=== PATIENT | male | born 1955 | race Caucasian/White ===

== ENCOUNTER 2023-04-10 07:38 | Outpatient (CLI) | payer BC, SELFPAY ==
--- NOTE | ~2023-04-10 | NM_ITS ---
EXAMINATION: NM bone scan whole body DATE: 04/10/2023 12:02 INDICATION: Prostate cancer TECHNIQUE: 26.8 mCi Tc-99m HDP was administered intravenously. Delayed whole-body scintigrams were o btained. COMPARISON: CT abdomen pelvis dated 04/10/2023 FINDINGS: There is prominent increased uptake at the left hip corresponding to the advanced osteoarthritis with remodeling of both the glenoid and femoral head seen on prior CT. Additional likely degenerative lionel nt centered uptake at the bilateral hands and wrists and bilateral sternoclavicular joints. Additiona l mild likely degenerative versus enthesopathic uptake at the right patella. There is mild uptake at the right ischial tuberosity with subtle corresponding sclerosis on the prior CT which raises suspici on for osseous metastatic disease. IMPRESSION: 1. Mild uptake at the right ischial tuberosity where there is subtle sclerosis which is nonspecific b ut suspicious for metastatic disease. Could consider PSMA PET for further evaluation. Reviewed, dictated and finalized at location A. IMPRESSION: 1. Mild uptake at the right ischial tuberosity where there is subtle sclerosis which is nonspecific but suspicious for metastatic disease. Could consider PSMA PET for further evaluation.
--- NOTE | ~2023-04-10 | CT_ITS ---
EXAMINATION: CT abdomen pelvis w con DATE: 04/10/2023 08:13 INDICATION: Prostate cancer TECHNIQUE: Computed tomography (CT) of the abdomen and pelvis was performed with 100 mL Omnipaque-350 intravenous contrast. Automated exposure control and iterative reconstruction technique were employe d. The dose-length product was 555.01 mGy-cm. COMPARISON: None FINDINGS: Mild discoid atelectasis in the right middle lobe. Heart size is normal. No pericardial or pleural ef fusion. A few hepatic and splenic calcifications consistent with old granulomatous disease. Gallbladd er, pancreas, bilateral adrenal glands are normal. Bilateral low-attenuation renal cysts the largest on the left measuring 1.2 cm. Prostatomegaly measuring 4.9 x 3.8 cm. Bladder is unremarkable. No arlyn l obstruction. Normal appendix. No free intraperitoneal gas or fluid. No pathologically enlarged abdo brenard or pelvic lymphadenopathy. Chronic appearing minimal to mild likely physiologic anterior wedgin g at T11-L1. Advanced osteoarthritis at the left hip with remodeling of the left femoral head and evelio tabulum. Subtle ill-defined sclerosis at the right ischial tuberosity with mild corresponding uptake on bone scan which raises some suspicion for metastatic disease. IMPRESSION: 1. Prostatomegaly. 2. Subtle sclerosis at the right ischial tuberosity where there is corresponding mild uptake on bone scan which raises some suspicion for metastatic disease. No other lesions suspicious for metastatic d isease. Could consider PSMA PET for more sensitive and specific evaluation for metastatic prostate ca ncer. Reviewed, dictated and finalized at location A. IMPRESSION: 1. Prostatomegaly. 2. Subtle sclerosis at the right ischial tuberosity where there is correspondin g mild uptake on bone scan which raises some suspicion for metastatic disease. No other lesions suspicious for metastatic disease. Could consider PSMA PET for more sensitive and specific evaluation for metastatic prostate cancer.
[2023-04-10 08:09] LABS: Estimated Glomerular Filt Rate > 60
== END 2023-04-10 07:39 | disposition home or self-care (01) ==
LOC: ANHIMG 07:45
PROVIDERS: PCP Urology; Visit Provider Urology
DX: C61 Malignant neoplasm of prostate (principal)
CPT/HCPCS: 74177; 78306; A9503; Q9967

== ENCOUNTER 2023-05-04 11:52 | Outpatient (CLI) | payer BC, SELFPAY ==
--- NOTE | ~2023-05-04 | PE_ITS ---
EXAMINATION: PET_PETPSMAST_PT DATE: 05/04/2023 14:39 INDICATION: Malignant neoplasm of prostate. TECHNIQUE: 8.937 mCi of piflufolastat F-18 was administered intravenously. Low dose computed tomograp hy (CT) images were acquired from the base of the brain to the proximal thighs for attenuation correc tion and anatomic localization. Automated exposure control was employed. Dose-length product (DLP) wa s 546 mGy-cm. Positron emission tomography (PET) images were acquired in the same distribution. COMPARISON: Bone scan 04/10/2023, CT abdomen and pelvis 04/10/2023 FINDINGS: Head/neck: There are no pathologically enlarged lymph nodes. Chest: A calcified right lung nodule and calcified right hilar and mediastinal lymph nodes are consis tent with old granulomatous disease. There is no pneumonia or pleural effusion. The heart size is nor mal. No pericardial effusion. Abdomen/pelvis/proximal thighs: Calcifications in the liver and spleen are consistent with old granul omatous disease. The gallbladder, pancreas, adrenal glands, and kidneys are normal. There are no dila michelle loops of bowel. The prostate is mildly enlarged. There is increased activity in the prostate, rig ht worse than left with maximum SUV of 9.2. There are no pathologically enlarged lymph nodes. There i s a normal-sized right internal iliac node with maximum SUV of 6.3. There is no free intraperitoneal fluid. There is sclerosis in right ischial tuberosity with maximum SUV of 2.2. IMPRESSION: 1. Mildly enlarged prostate with increased activity, consistent with primary malignancy. 2. Normal sized right internal iliac node with increased activity, consistent with metastatic disease . 3. Sclerosis in right ischial tuberosity with activity level similar to background activity, which ma y be reactive sclerosis from enthesopathy. Reviewed, dictated and finalized at location E. IMPRESSION: 1. Mildly enlarged prostate with increased activity, consistent with primary ma lignancy. 2. Normal sized right internal iliac node with increased activity, consistent w ith metastatic disease. 3. Sclerosis in right ischial tuberosity with activity level similar to backgro und activity, which may be reactive sclerosis from enthesopathy.
== END 2023-05-04 11:53 | disposition home or self-care (01) ==
PROVIDERS: PCP Urology; Visit Provider Urology
DX: C61 Malignant neoplasm of prostate (principal)
CPT/HCPCS: 78815; A9595

== ENCOUNTER 2024-01-21 10:20 | Outpatient (CLI) | payer BC, SELFPAY ==
--- NOTE | ~2024-01-21 | PE_ITS ---
EXAMINATION: PET_PETPSMAST_PT DATE: 01/21/2024 12:35 INDICATION: Prostate cancer TECHNIQUE: 5.473 mCi of Locametz Ga-68(55-Hb-pfmjoopstd) was administered i.v. Low dose computed jesus ography (CT) images were acquired from the base of the brain to the base of the brain to the proximal thighs for attenuation correction and anatomic localization. Positron emission tomography (PET) imag es were acquired in the same distribution beginning 87 minutes after injection. Images including fuse d PET/CT images were reconstructed in axial, coronal, and sagittal planes. Automated exposure control technique was employed. The dose-length product was 1146.78mGy-cm. COMPARISON: 05/04/2023 FINDINGS: Head/neck: Typical pattern of symmetric physiologic increased activity in the lacrimal, parotid and submandibula r glands as well as along the mucosa of the nasal and oral cavities, pharynx and hypopharynx. No path ologically enlarged cervical lymphadenopathy or suspicious foci of increased uptake in the visualized head or neck. Chest: Small calcified nodules in the superior segment of the right lower lobe along with calcified right hi lar and mediastinal lymph nodes consistent with old granulomatous disease. Dependent atelectasis in b ilateral lower lobes. No suspicious pulmonary nodules, pneumonia or pulmonary edema. There is a small pleural effusion loculated along the right minor fissure. Heart size is normal. Small amount of athe rosclerotic coronary artery calcific location. No pericardial effusion. Thoracic aorta is normal in c aliber. No pathologically enlarged or PSMA avid thoracic lymphadenopathy. Abdomen/pelvis/proximal thighs: Interval prostatectomy. Physiologic renal accumulation and excretion of activity in the kidneys, blad pamela and along portions of ureters. Normal degree and slightly heterogenous pattern of increased uptak e throughout the liver and spleen without radiologic correlate or dominant PSMA avid lesion. A few sc attered small calcified hepatic and splenic nodules consistent with old granulomatous disease. The ga llbladder, pancreas and bilateral adrenal glands are normal. Moderate uptake scattered throughout the bowels with typical duodenal and proximal jejunal predominance and without radiologic correlate, als o likely physiologic. Normal appendix. Slight increase in size and degree of mild increased uptake as sociated with previously 6 mm, currently 8 mm PSMA avid right obturator lymph node with maximal SUV o f 7.1 which is increased from 6.3. No other abnormal foci of increased uptake or pathologically enlar ged lymphadenopathy in the abdomen, pelvis or proximal thighs. Musculoskeletal: Severe osteoarthritis at the left hip. No interval change in a small region of asymmetric mild sclero sis of the right ischial tuberosity without abnormal PSMA uptake. No other suspicious lytic, blastic or PSMA avid bone lesions. IMPRESSION: 1. Status post prostatectomy for reported prostate cancer with slight interval increase in size and d egree of PSMA uptake at an 8 mm right obturator chain lymph node which is suspicious for metastatic d isease. No other lesions suspicious for metastatic disease. Reviewed, dictated and finalized at location A. IMPRESSION: 1. Status post prostatectomy for reported prostate cancer with slight interval increase in size and degree of PSMA uptake at an 8 mm right obturator chain lym ph node which is suspicious for metastatic disease. No other lesions suspicious for metastatic disease.
== END 2024-01-21 10:21 | disposition home or self-care (01) ==
PROVIDERS: PCP Urology; Visit Provider Radiology Radiation Oncology
DX: C61 Malignant neoplasm of prostate (principal)
CPT/HCPCS: 78815; A9596

== ENCOUNTER 2024-01-24 06:34 | Outpatient (CLI) | payer BC, SELFPAY ==
--- NOTE | ~2024-01-24 | MR_ITS ---
EXAMINATION: MR pelvis wo/w con DATE: 01/24/2024 07:51 INDICATION: Malignant neoplasm of prostate. TECHNIQUE: Magnetic resonance imaging (MRI) of the pelvis was performed without and with 16 mL MultiH ance intravenous contrast. COMPARISON: PET/CT 01/21/2024 FINDINGS: There are changes of prostatectomy. There are no pathologically enlarged lymph nodes. There is no myriam e intraperitoneal fluid. There is advanced left hip osteoarthritis. IMPRESSION: 1. No evidence of metastatic disease by MRI. Reviewed, dictated and finalized at location A.
== END 2024-01-24 06:35 | disposition home or self-care (01) ==
PROVIDERS: PCP Urology; Visit Provider Radiology Radiation Oncology
DX: C61 Malignant neoplasm of prostate (principal)
CPT/HCPCS: 72197; A9577

== ENCOUNTER 2024-11-03 08:43 | Outpatient (CLI) | payer BC, SELFPAY ==
--- NOTE | ~2024-11-03 | DEXA_ITS ---
Bone Density Report Name: MIRTHA FIGUEROA Age: 69 Sex: Male Ethnicity: White Date of : 1955 Indication: screening for osteoporosis; cancer; rheumatoid arthritis; Referring Provider: FELIPE TOWNSEND Study: Bone densitometry was performed. Exam Date: November 03, 2024 Accession number: [id number] Bone Density: Region BMD T-score Z-score Classification AP Spine(L1-L4) 0.973 -1.1 -0.2 Osteopenia Femoral Neck (Left) 0.832 -0.7 0.5 Normal Total Hip (Left) 1.080 0.3 1.0 Normal Femoral Neck (Right) 0.708 -1.6 -0.4 Osteopenia Total Hip (Right) 0.972 -0.4 0.3 Normal Total Hip Mean 1.026 -0.1 0.7 Normal World Health Organization criteria for BMD impression classify patients as: Normal (T-score at or above -1.0), Osteopenia (T-score between -1.0 and -2.5), or Osteoporosis (T-score at or below -2.5). 10-year Fracture Risk(1): Major Osteoporotic Fracture 8.6% Hip Fracture 2.0% Reported Risk Factors: [place] (), Neck BMD=0.708, BMI=27.3, rheumatoid arthritis (1) FRAX(R) Version 3.08. Fracture probability calculated for an untreated patient. Fracture probability may be lower if the patient has received treatment. Clinical Information Provided by Patient: Has rheumatoid arthritis Has the following medical conditions: Cancer Patient maximum height was 72 No regular weight bearing exercise Drinks caffeinated beverages Impression: The patient has low bone mass, based on the Right Femoral Neck T-score. The patient has an estimated ten-year risk of hip fracture of 2% and an estimated ten-year risk of major fracture of 8.6%, based on the WHO FRAX algorithm. Discussion: BONE DENSITY IS LOW AT ONE OR MORE SKELETAL SITES. This patient's lowest T-score is low at one or more skeletal sites. It meets the World Health Organization's (WHO) criteria for ?low bone mass? (T-score between -1.0 and -2.5). The patient's 10-year risk of fracture as calculated by FRAX is less than the threshold where pharmacological therapy is recommended by the National Osteoporosis Foundation (NOF). However, all treatment decisions require clinical judgment and consideration of individual patient factors, including patient preferences, comorbidities, previous drug use, risk factors not captured in the FRAX model (e.g., frailty, falls, vitamin D deficiency, increased bone turnover, interval significant decline in bone density) and possible under or overestimation of fracture risk by FRAX. The patient should follow a healthful lifestyle (good nutrition with adequate calcium and vitamin D, and appropriate weight-bearing exercise). Follow-Up: Consider repeating this study in 2 to 3 years to reassess this patient's status, or sooner if there is some new clinical indication. Reported by: WILLIS on 11/03/2024 9:18:00 AM. Reviewed, dictated and finalized at location [facility]
--- OUTSIDE RECORDS SUMMARY | 2024-11-03 09:10 | XMS_ITS ---
Author Organization Unknown Address [address], [place] [id number] Phone Care Team Providers Care Field Installation Technician Name Role Phone TEENA BAIRD Attending Unavailable Results CBC W DIFF - Collect Date/Ti me: 06/04/2024 09:28 [facility] ID: [id number] [address], [place], [id number] LOINC: 42939-6 Test Value Unit Reference Range Code Code System Flag WBC 5.0 10^3/uL L=3.5 H=11.0 6690-2 LOINC RBC 4.55 10^6/uL L=4.30 H=5.30 789-8 LOINC HEMOGLOBIN 14.6 g/dL L=12.3 H=17.3 718-7 LOINC HEMATOCRIT 42.6 % L=36.9 H=49.3 4544-3 LOINC MCV 94 fl L=81 H=96 787-2 LOINC MCH 32.1 pg L=29.0 H=33.0 785-6 LOINC MCHC 34.3 g/dl L=29.0 H=41.0 786-4 LOINC RDW 47 fl L=32 H=54 PLT COUNT 203 10^3/uL L=140 H=450 LY% 9 % L=11 H=41 L MO% 9 % L=2 H=14 NE% 81 % L=48 H=75 H IG% 0 % L=0 H=1 EO% 1 % L=0 H=5 BA% 0 % L=0 H=2 LY# 0.43 10^3/uL L=0.30 H=3.30 MO# 0.45 10^3/uL L=0.15 H=1.30 NE# 4.02 10^3/ul L=1.20 H=8.00 IG# 0.02 10^3/uL L=0.00 H=0.10 EO# 0.03 10^3/uL L=0.00 H=0.50 BA# 0.01 10^3/uL L=0.00 H=0.10 MANUAL DIFF NOT INDICATED MORPHOLOGY COMPREHENSIVE METABOLIC PANE L - Collect Date/Time: 06/04/2024 09:28 [facility] ID: [id number] [address], [place], [id number] LOINC: 29862-0 Test Value Unit Reference Range Code Code System Flag IS PATIENT FASTING? GLUCOSE 115 mg/dl L=70 H=100 2345-7 LOINC H BUN 13 mg/dl L=8 H=23 94350-6 LOINC CREATININE 0.78 mg/dl L=0.60 H=1.10 58769-7 LOINC AGE 69 yrs eGFR 98 72079-1 LOINC SODIUM 138 mmol/L L=133 H=145 2951-2 LOINC POTASSIUM 4.4 mmol/L L=3.3 H=5.1 2823-3 LOINC CHLORIDE 100 mmol/L L=96 H=108 01721-0 LOINC ALK PHOS 65 U/L L=39 H=117 SGOT 33 U/L L=5 H=37 TOTAL BILI 0.5 mg/dl L=0.1 H=1.0 TOTAL PROTEIN 6.9 g/dl L=6.0 H=8.0 ALBUMIN 4.0 g/dl L=3.4 H=4.8 CALCIUM 9.9 mg/dl L=8.4 H=10.2 60069-7 LOINC CO2 28.7 mmol/L L=20.0 H=33.0 56766-2 LOINC ANION GAP 14 mmol/L L=8 H=16 SGPT 21 U/L L=5 H=40 LIPID PROFILE - Collect Date /Time: 06/04/2024 09:28 [facility] ID: [id number] [address], [place], [id number] LOINC: Test Value Unit Reference Range Code Code System Flag TRIGLYCERIDE 142 mg/dl L=10 H=200 88186-0 LOINC CHOLESTEROL 214 mg/dl L=50 H=200 54294-7 LOINC H HDL 54.0 mg/dl L=35.0 H=55.0 2085-9 LOINC LDL(CALC) 132 MG/DL L=10 H=160 TSH - Collect Date/Time: 09:28 [facility] ID: [id number] [address] [place], [place], [id number] LOINC: 30324-7 Test Value Unit Reference Range Code Code System Flag TSH 1.88 uU/ml L=0.55 H=4.47 3016-3 LOINC FREE T4 - Collect Date/Time: 06/04/2024 09:28 [facility] ID: [id number] [address], [place], [address] LOINC: 3024-7 Test Value Unit Reference Range Code Code System Flag FREE T4 1.10 NG/DL L=0.71 H=1.49 3024-7 LOINC VITAMIN D 25 HYDROXYVITAMIN D2 D3 - Collect Date/Time: 06/04/2024 09:28 [facility] ID: [id number] [address] [place], [place], [phone] LOINC: 92689-9 Test Value Unit Reference Range Code Code System Flag VITAMIN D, 25-OH, TOTAL 38 30-100 VITAMIN D, 25-OH, D3 38 ng/mL VITAMIN D, 25-OH, D2 < 4.0 ng/mL URIC ACID - Collect Date/Ricky e: 06/04/2024 09:28 [facility] ID: [id number] [address], [place], [address] LOINC: 3084-1 Test Value Unit Reference Range Code Code System Flag URIC ACID 3.8 mg/dl L=3.4 H=7.0 HEMOGLOBIN A1C - Collect Byron e/Time: 06/04/2024 09:28 [facility] ID: [id number] [address] [place], [place], [address] LOINC: 4548-4 Test Value Unit Reference Range Code Code System Flag HEMOGLO A1C 5.3 % L=4.8 H=5.9 4548-4 LOINC MICROALBUMIN URINE - Collect Date/Time: 06/04/2024 09:28 [facility] ID: [id number] [address] [place], [place], [address] LOINC: 07966-3 Test Value Unit Reference Range Code Code System Flag CREATININE, RANDOM URINE 66 20-320 ALBUMIN, URINE 0.4 mg/dL ALBUMIN/CREATININERATI O, RANDOM URINE 6 <30 FERRITIN - Collect Date/Time : 06/04/2024 09:27 [facility] ID: [id number] [address], [place], [address] LOINC: 2276-4 Test Value Unit Reference Range Code Code System Flag FERRITIN 106 24-380 IRON BINDING CAPACITY - Dora ect Date/Time: 06/04/2024 09:27 [facility] ID: [id number] [address], [place], [address] LOINC: 2500-7 Test Value Unit Reference Range Code Code System Flag IRON, TOTAL 143 50-180 IRON BINDING CAPACITY 342 250-425 % SATURATION 42 20-48 VITAMIN B12 LEVEL - Collect Date/Time: 06/04/2024 09:27 [facility] ID: [id number] [address], [place], [address] LOINC: 83084-0 Test Value Unit Reference Range Code Code System Flag VITAMIN B12 869 871-7426 FOLIC ACID LEVEL - Collect D ate/Time: 06/04/2024 09:27 [facility] ID: [id number] [address], [place], [address] LOINC: 2284-8 Test Value Unit Reference Range Code Code System Flag FOLATE, SERUM 8.0 T3 TOTAL - Collect Date/Time : 06/04/2024 09:27 [facility] ID: [id number] [address] [place], [place], [address] LOINC: 3053-6 Test Value Unit Reference Range Code Code System Flag T3, TOTAL 156 76-181 HEP A TOTAL - Collect Date/T emerson: 06/04/2024 09:27 [facility] ID: [id number] [address], [place], [address] LOINC: 24523-5 Test Value Unit Reference Range Code Code System Flag HEPATITIS A AB, TOTAL NON-REACTIVE NON-REACTIVE HEP C ANTIBODY SCREENING MED ICARE WELL - Collect Date/Time: 06/04/2024 09:27 [facility] ID: [id number] [address], [place], [address] LOINC: 86137-5 Test Value Unit Reference Range Code Code System Flag HEPATITIS C ANTIBODY NON-REACTIVE NON-REACTIVE Social History Type Status Start Date End Date Code Code Syst em Smoking History Never smoker (Never Smoked) 015166863 SNOMED CT Smoking History Unknown if ever smoked [address] Sex Male Medications Medication Start Date End Date Route Frequency Dose Code Code System Medication Instructions Home Meds Orgovyx 120 MG Oral Tablet 06/04/2024 Unknown By Mouth Daily 1 TABLET 2573847 RxNorm 1 TABLET By Mouth Daily Xtandi 80 MG Oral Tablet 06/04/2024 Unknown By Mouth Daily 2 TABLET 6669280 RxNorm 2 TABLE T By Mouth Daily At bedtime Black Cohosh 540 MG Oral Capsule 06/04/2024 Unknown By Mouth Daily 1 CAPSULE RxNorm 1 CAPSULE By Mouth Daily Drisdol 57239KV Oral Capsule, Liquid Filled 06/18/2024 Unknown By Mouth Once a week 1 CAPSULE 1961315 RxNorm 1 CAPSULE By Mouth Once a week For 12 weeksThree weeks after your last dose please repeat vitamin-D level lab Gabapentin 300 MG Oral Tablet, Extended Release, 24 HR 06/22/2024 06/25/2024 By Mouth Every 12 hours 1 TABLET 1690557 RxNorm 1 TABLET By Mouth Every 12 hours Gabapentin 300MG Oral Capsule 06/25/2024 Unknown By Mouth Every 12 hours 1 CAPSULE 670389 RxNorm 1 CAPSULE By Mouth Every 12 hours Assessment You had the following problems:HYPERTENSIONPLAQUE PSORIASISHEALTH CHECK UPELEVATED PSAMALIGNANT NEOPLASM OF PROSTATEMALE HOT FLASH (DISORDER)ENCOUNTER FOR SCREENING FOR CARDIOVASCULAR DISORDERSINFECTION SCREENINGSCREENING FOR HEP CHISTORY OF ANEMIAENDOCRINE DISORDERDYSLIPIDEMIAVITAMIN D DEFICIENCYHYPERGLYCEMIANEUROPATHYPRE-EXISTING CONDITION IMPROVED Hospital Discharge Instructions Should you have any questions prior to discharge, please contact a member of your healthcare team. If you have left the hospital and have any questions, please contact your primary care physician. Reason For Referral No Data Found Problems Problem Start Date Resolved Date Status Code Code System HYPERTENSION active 88316424 SNOMED- CT PLAQUE PSORIASIS active 072802432 SNO MED-CT HEALTH CHECK UP active 326876564 SNOM ED-CT ELEVATED PSA 04/06/2022 active 518723537 SNOMED -CT MALIGNANT NEOPLASM OF PROSTATE 03/27/2023 active 84964281 SNOMED-CT MALE HOT FLASH (DISORDER) 06/04/2024 active 199906600585996 SNOMED-CT ENCOUNTER FOR SCREENING FOR CARDIOVASCULAR DISORDERS active 137589284 SNOMED-CT INFECTION SCREENING active 359940875 SNOMED-CT SCREENING FOR HEP C active 171289018 SNOMED-CT HISTORY OF ANEMIA active 733982336 SN OMED-CT ENDOCRINE DISORDER active 263528348 S NOMED-CT DYSLIPIDEMIA active 994537478 SNOMED- CT VITAMIN D DEFICIENCY active 67395111 SNOMED-CT HYPERGLYCEMIA active 41482746 SNOMED -CT NEUROPATHY active 476796013 SNOMED-CT PRE-EXISTING CONDITION IMPROVED 09/24/2024 active 872825802 SNOMED-CT ACUTE SINUSITIS 01/30/2020 resolved 31419543 SNO MED-CT ACUTE BRONCHITIS 01/30/2020 resolved 13197903 SN OMED-CT URI 01/30/2020 resolved 53369349 SNOMED-CT Allergies and Adverse Reactions Allergy Substance Reaction Severity Start Date Concern Status Co de Code System No Known Drug Allergies Mild Active 908757877 SNOMED-CT Plan of Treatment Colonoscopy 05/05/2021 Pre OP Phone 05/05/2021 Covid Vaccine 1st Dose Moderna 10/15/19 21 Covid Vaccine 2nd Dose Moderna 10/15/19 21 Covid Vaccine 1st Dose Moderna 11/12/19 21 Covid Vaccine 2nd Dose Moderna 11/12/19 21 Physical Wellness 30 06/11/2025 Description Due Date Details Instructions Vitamin D 09/17/2024 Due for recheck Screening Colonoscopy 05/12/2026 last one 1 @ [facility] jha/ Otoniel, repeat 5 years. Encounters Encounter Diagnosis Start Date Code Code Sys tem Hyperlipidemia 06/04/2024 20529667 SNOMED-CT Personal Care Team Section Performer Name Performer Role Active Date Inactive Tate lockhart
--- OUTSIDE RECORDS SUMMARY | 2024-11-03 09:10 | XMS_ITS ---
Author Organization Unknown Address [address] [place] [phone] Phone Care Team Providers Care Metal Solderer Name Role Phone TEENA BAIRD Attending Unavailable Immunization Immunization Date Status Additional Notes Code Code System Tdap 03/21/2021 Completed 115 CVX COVID-19, mRNA, LNP-S, PF, 1 00 mcg/0.5mL dose or 50 mcg/0.25mL dose 06/24/2021 Completed 207 CVX COVID-19, mRNA, LNP-S, PF, 1 00 mcg/0.5mL dose or 50 mcg/0.25mL dose 11/11/2020 Completed 207 CVX COVID-19, mRNA, LNP-S, PF, 1 00 mcg/0.5mL dose or 50 mcg/0.25mL dose 10/14/2020 Completed 207 CVX Social History Type Status Start Date End Date Code Code Syst em Smoking History Never smoker (Never Smoked) 664114981 SNOMED CT Smoking History Unknown if ever smoked [address] Sex Male Vital Signs Vital Sign Value Unit Luquillo Value Luquillo Unit Date/Time Recent/Initial? Code Code System Body Mass Index 27.40 kg/m2 06/18/2024 07:41 Initial 34091 -5 LOINC Systolic Blood Pressure 132 mm[Hg] 06/18/2024 07:41 Initial 8480- 6 LOINC Diastolic Blood Pressure 84 mm[Hg] 06/18/2024 07:41 Initial 8462- 4 LOINC Body Surface Area 2.16 m2 06/18/2024 07:41 Initial 3140- 1 LOINC Height 182.880 0 cm 72.00 in 06/18/2024 07:41 Initial 8302- 2 LOINC O2 Saturation 99 % 2023 07:41 Initial 27714 -5 LOINC Pulse 85.0 /min 06/18/2024 07:41 Initial 8867- 4 LOINC Respiration 20 /min 06/18/20 07:41 Initial 9279- 1 LOINC Temperature 36.9 Karyna 98.5 F 06/18/20 07:41 Initial 8310- 5 LOINC Weight 91.63 kg 202.00 lbs 06/18/2024 07:41 Initial 20620 -[address] [facility] Medications Medication Start Date End Date Route Frequency Dose Code Code System Medication Instructions Home Meds Orgovyx 120 MG Oral Tablet 06/04/2024 Unknown By Mouth Daily 1 TABLET 0533703 RxNorm 1 TABLET By Mouth Daily Xtandi 80 MG Oral Tablet 06/04/2024 Unknown By Mouth Daily 2 TABLET 3148214 RxNorm 2 TABLE T By Mouth Daily At bedtime Black Cohosh 540 MG Oral Capsule 06/04/2024 Unknown By Mouth Daily 1 CAPSULE RxNorm 1 CAPSULE By Mouth Daily Drisdol 55960SM Oral Capsule, Liquid Filled 06/18/2024 Unknown By Mouth Once a week 1 CAPSULE 3643436 RxNorm 1 CAPSULE By Mouth Once a week For 12 weeksThree weeks after your last dose please repeat vitamin-D level lab Gabapentin 300 MG Oral Tablet, Extended Release, 24 HR 06/22/2024 06/25/2024 By Mouth Every 12 hours 1 TABLET 0384199 RxNorm 1 TABLET By Mouth Every 12 hours Gabapentin 300MG Oral Capsule 06/25/2024 Unknown By Mouth Every 12 hours 1 CAPSULE 175896 RxNorm 1 CAPSULE By Mouth Every 12 [...] Date Status Code Code System HYPERTENSION active 60727810 SNOMED- CT PLAQUE PSORIASIS active 503234272 SNO MED-CT HEALTH CHECK UP active 491684122 SNOM ED-CT ELEVATED PSA 04/06/2022 active 053329978 SNOMED -CT MALIGNANT NEOPLASM OF PROSTATE 03/27/2023 active 72695400 SNOMED-CT MALE HOT FLASH (DISORDER) 06/04/2024 active 196353984681421 SNOMED-CT ENCOUNTER FOR SCREENING FOR CARDIOVASCULAR DISORDERS active 064508604 SNOMED-CT INFECTION SCREENING active 374736783 SNOMED-CT SCREENING FOR HEP C active 401642927 SNOMED-CT HISTORY OF ANEMIA active 924029984 SN OMED-CT ENDOCRINE DISORDER active 621375524 S NOMED-CT DYSLIPIDEMIA active 491318058 SNOMED- CT VITAMIN D DEFICIENCY active 08773942 SNOMED-CT HYPERGLYCEMIA active 52158363 SNOMED -CT NEUROPATHY active 390186024 SNOMED-CT PRE-EXISTING CONDITION IMPROVED 09/24/2024 active 433217233 SNOMED-CT ACUTE SINUSITIS 01/30/2020 resolved 31768428 SNO MED-CT ACUTE BRONCHITIS 01/30/2020 resolved 79127616 SN OMED-CT URI 01/30/2020 resolved 98664411 SNOMED-CT Allergies and Adverse Reactions Allergy Substance Reaction Severity Start Date Concern Status Co de Code System No Known Drug Allergies Mild Active 038011940 SNOMED-CT Plan of Treatment Colonoscopy 05/05/2021 Pre OP Phone 05/05/2021 Covid Vaccine 1st Dose Moderna 10/15/19 21 Covid Vaccine 2nd Dose Moderna 10/15/19 21 Covid Vaccine 1st Dose Moderna 11/12/19 21 Covid Vaccine 2nd Dose Moderna 11/12/19 21 Physical Wellness 30 06/11/2025 Description Due Date Details Instructions Vitamin D 09/17/2024 Due for recheck Screening Colonoscopy 05/12/2026 last one 1 @ [facility] abhijeet/ Otoniel, repeat 5 years. Future Order Description Future Order Date Futu re Order Loinc: VITAMIN D 25 HYDROXYVITAMIN D2 D3 09/03/2024 LOINC: 17921-8 Encounters Encounter Diagnosis Start Date Code Code Sys tem 06/18/2024 [id number] SNOMED-CT Personal Care Team Section Performer Name Performer Role Active Date Inactive Da te Progress Notes [facility] 06/22/2024 23:57 Admission Date/Time: 06/18/2024 09:04 Brie Ruano DO Clinic Visit Note Chief Complaint: LAB RESULTS Nurse Note: this nurse note is documented by Lynn COON 69 yr old male presents to [facility] FOR LAB RESULTS Depression Screening PHQ9 completed by the patient. See scanned image. PHQ-9 Total Score: If score >=10, indicate Plan: Score Assessment: 0-4= not an indicator or depression, 5-9=mild depression, 10-14=moderate depression, 15-19=moderately severe depression, 20-27=severe depression. I have informed the patient about the use of ambient listening and speech recognition technologies during our conversation. The patient has provided verbal consent for this recording, understanding that it will be used to enhance their care and improve service quality. The patient has been made aware of their rights regarding data privacy and retention. History of Present Illness: The patient is a 37-year-old male who presents for leg cellulitis follow-up. He experiences intermittent stinging, burning, and numbness sensations, particularly in the mornings, which persist throughout the day. Despite having gabapentin at home, he does not take it due to personal issues. His pain is intolerable. He has completed his course of antibiotics and received an injection. He removes his socks at night and occasionally during the day when taking his dog out. He is not currently using any cream. He is currently taking prasugrel and Lasix, which he reports as beneficial. He has an upcoming appointment with his oil recovery operator. He does not own compression stockings. He has small blisters on his legs that appear randomly. He tries to elevate his legs while sitting at home. Supplemental Information When he lays down, his breathing gets to the point where he cannot breathe, so he has to sit up. ASSESSMENT AND PLAN Leg cellulitis-wound appears to be healing well. He was advised to wear wider socks. neuropathy-gabapentin 300 mg BID Blisters- use [id number] CeraVe lotion was provided. He was also advised to elevate his legs while not walking Patient is encouraged to keep hydration to at least 60 oz of water a day especially considering that he is using diuretic Allergy Table Allergen Type Reaction No Known Food Allergies Food No Known Environmental Allergies Environment No Known Drug Allergies Medication Vital Signs: This Visit HtWt Date/Time BP (mm/Hg) BP Position/Site Heart Rate Resp Temp (F) SPO2% Pain Score Height (in) Weight (lbs/ozs) BMI Head Cir (cm) 06/18/2024 07:41 132/84 Sitting/Left Arm 85 20 98.5 Temporal Scanning 99 % 72 in 202.0 27.4 Lab Results: This Visit: No Labs Available patient confirmed understanding and agreed to follow the plan Return to clinic as needed total minutes were spent on this calendar date on these patient specific activities: (maria a all that occurred) x Documenting clinical information in the electronic health record x Counseling and education to the patient/family/caregiver x Preparation to see the patient by reviewing test result x Ordered medications, tests or procedures x Preparation to see the patient by reviewing outside records x Referring and communicating with other health manager care management x Obtaining and/or reviewing separately obtained history Independent interpretation of results and communicating results to the patient/family/caregiver x Performing a medically appropriate examination/evaluation Care coordination (not reported separately) Meds ordered and administered this visit: No Current Medications Available Discharge Med List: Discharge Medications Medication Special Instructions Start Date Prescribing MD Gabapentin 300 MG Oral Tablet, Extended Release, 24 HR 1 TABLET By Mouth Every 12 hours 06/22/2024 CHERNYSH BRIE Drisdol 91108ED Oral Capsule, Liquid Filled 1 CAPSULE By Mouth Once a week For 12 weeks Three weeks after your last dose please repeat vitamin-D level lab 06/18/2024 CHERNYSH BRIE Black Cohosh 540 MG Oral Capsule 1 CAPSULE By Mouth Daily 06/04/2024 Unknown Xtandi 80 MG Oral Tablet 2 TABLET By Mouth Daily At bedtime 06/04/2024 Unknown Orgovyx 120 MG Oral Tablet 1 TABLET By Mouth Daily 06/04/2024 Unknown
--- OUTSIDE RECORDS SUMMARY | 2024-11-03 09:10 | XMS_ITS ---
Author Organization Unknown Address [address], [place] [phone] Phone Care Team Providers Care Sand Screener Name Role Phone ALEMCandice MOHIT Attending Unavailable Social History Type Status Start Date End Date Code Code Syst em Smoking History Never smoker (Never Smoked) 829375090 SNOMED CT Smoking History Unknown if ever smoked [address] Sex Male Medications Medication Start Date End Date Route Frequency Dose Code Code System Medication Instructions Home Meds Aspirin 81MG Oral Tablet, Chewable 10/23/2014 06/04/2024 By mouth Daily 1 TABLET 921806 RxNorm 1 TABLET By mouth Daily OTC Dulcolax 5MG Oral Tablet, Enteric Coated 04/19/2021 03/22/2022 BY MOUTH DIRECTED 4 TABLET 20950808 RxNorm TAKE 4 TABLET BY MOUTH DIRECTED for Colon Prep Polyethylene Glycol Powder 04/19/2021 03/22/2022 ORAL DIRECTED 238 GRAM RxNorm Take and mix the entire bottle with 64 ounces of Gatorade and drink 1/2 the night before the colonoscopy and drink the remaining 1/2 the day of the colonoscopy. Orgovyx 120 MG Oral Tablet 06/04/2024 Unknown By Mouth Daily 1 TABLET 3413476 RxNorm 1 TABLET By Mouth Daily Xtandi 80 MG Oral Tablet 06/04/2024 Unknown By Mouth Daily 2 TABLET 3232030 RxNorm 2 TABLET By Mouth Daily At bedtime Black Cohosh 540 MG Oral Capsule 06/04/2024 Unknown By Mouth Daily 1 CAPSULE RxNorm 1 CAPSULE By Mouth Daily Drisdol 77864WU Oral Capsule, Liquid Filled 06/18/2024 Unknown By Mouth Once a week 1 CAPSULE 5823085 RxNorm 1 CAPSULE By Mouth Once a week For 12 weeksThree weeks after your last dose please repeat vitamin-D level lab Gabapentin 300 MG Oral Tablet, Extended Release, 24 HR 06/22/2024 06/25/2024 By Mouth Every 12 hours 1 TABLET 5216746 RxNorm 1 TABLET By Mouth Every 12 hours Gabapentin 300MG Oral Capsule 06/25/2024 Unknown By Mouth Every 12 hours 1 CAPSULE 750078 RxNorm 1 CAPSULE By Mouth Every 12 [...] Date Status Code Code System HYPERTENSION active 39898429 SNOMED- CT PLAQUE PSORIASIS active 971887483 SNO MED-CT HEALTH CHECK UP active 059181031 SNOM ED-CT ELEVATED PSA 04/06/2022 active 602807223 SNOMED -CT MALIGNANT NEOPLASM OF PROSTATE 03/27/2023 active 09302384 SNOMED-CT MALE HOT FLASH (DISORDER) 06/04/2024 active 680582423274772 SNOMED-CT ENCOUNTER FOR SCREENING FOR CARDIOVASCULAR DISORDERS active 165594935 SNOMED-CT INFECTION SCREENING active 286738892 SNOMED-CT SCREENING FOR HEP C active 442825019 SNOMED-CT HISTORY OF ANEMIA active 486388681 SN OMED-CT ENDOCRINE DISORDER active 099219131 S NOMED-CT DYSLIPIDEMIA active 189553127 SNOMED- CT VITAMIN D DEFICIENCY active 58444903 SNOMED-CT HYPERGLYCEMIA active 43664162 SNOMED -CT NEUROPATHY active 682309527 SNOMED-CT PRE-EXISTING CONDITION IMPROVED 09/24/2024 active 349874471 SNOMED-CT ACUTE SINUSITIS 01/30/2020 resolved 53514377 SNO MED-CT ACUTE BRONCHITIS 01/30/2020 resolved 17211190 SN OMED-CT URI 01/30/2020 resolved 02286331 SNOMED-CT Allergies and Adverse Reactions Allergy Substance Reaction Severity Start Date Concern Status Co de Code System No Known Drug Allergies Mild Active 695974241 SNOMED-CT Plan of Treatment Colonoscopy 05/05/2021 Pre OP Phone 05/05/2021 Covid Vaccine 1st Dose Moderna 10/15/19 21 Covid Vaccine 2nd Dose Moderna 10/15/19 21 Covid Vaccine 1st Dose Moderna 11/12/19 21 Covid Vaccine 2nd Dose Moderna 11/12/19 21 Physical Wellness 30 06/11/2025 Description Due Date Details Instructions Vitamin D 09/17/2024 Due for recheck Screening Colonoscopy 05/12/2026 last one 1 @ [facility], repeat 5 years. Encounters Encounter Diagnosis Start Date Code Code Sys tem Pre-surgery testing 05/11/2021 261485299 SNOMED-C T Personal Care Team Section Performer Name Performer Role Active Date Inactive Da te
--- OUTSIDE RECORDS SUMMARY | 2024-11-03 09:10 | XMS_ITS ---
Author Organization Unknown Address [address] [place], [place] [phone] Phone Care Team Providers Care Director Weights And Measures Name Role Phone TEENA BAIRD Attending Unavailable Results OCCULT BLOOD STOOL FIT 1 SPE C - Collect Date/Time: 06/05/2024 10:00 [facility] ID: [id number] [address], [place], [phone] LOINC: 5048-4 Test Value Unit Reference Range Code Code System Flag COLLECT DATE 06/05/2024 73929-9 LOINC OCCULT BLOOD STOOL POSITIVE NORMAL: NEGATIVE 97706-1 ZULEY[place] Social History Type Status Start Date End Date Code Code Syst em Smoking History Never smoker (Never Smoked) 568412898 SNOMED CT Smoking History Unknown if ever smoked [address] Sex Male Medications Medication Start Date End Date Route Frequency Dose Code Code System Medication Instructions Home Meds Orgovyx 120 MG Oral Tablet 06/04/2024 Unknown By Mouth Daily 1 TABLET 3732492 RxNorm 1 TABLET By Mouth Daily Xtandi 80 MG Oral Tablet 06/04/2024 Unknown By Mouth Daily 2 TABLET 5839310 RxNorm 2 TABLE T By Mouth Daily At bedtime Black Cohosh 540 MG Oral Capsule 06/04/2024 Unknown By Mouth Daily 1 CAPSULE RxNorm 1 CAPSULE By Mouth Daily Drisdol 67947RG Oral Capsule, Liquid Filled 06/18/2024 Unknown By Mouth Once a week 1 CAPSULE 8561750 RxNorm 1 CAPSULE By Mouth Once a week For 12 weeksThree weeks after your last dose please repeat vitamin-D level lab Gabapentin 300 MG Oral Tablet, Extended Release, 24 HR 06/22/2024 06/25/2024 By Mouth Every 12 hours 1 TABLET 4963891 RxNorm 1 TABLET By Mouth Every 12 hours Gabapentin 300MG Oral Capsule 06/25/2024 Unknown By Mouth Every 12 hours 1 CAPSULE 616709 RxNorm 1 CAPSULE By Mouth Every 12 [...] Date Status Code Code System HYPERTENSION active 69189264 SNOMED- CT PLAQUE PSORIASIS active 517874471 SNO MED-CT HEALTH CHECK UP active 615713463 SNOM ED-CT ELEVATED PSA 04/06/2022 active 171494586 SNOMED -CT MALIGNANT NEOPLASM OF PROSTATE 03/27/2023 active 58506152 SNOMED-CT MALE HOT FLASH (DISORDER) 06/04/2024 active 082252717589428 SNOMED-CT ENCOUNTER FOR SCREENING FOR CARDIOVASCULAR DISORDERS active 851874295 SNOMED-CT INFECTION SCREENING active 946693781 SNOMED-CT SCREENING FOR HEP C active 651093517 SNOMED-CT HISTORY OF ANEMIA active 027619923 SN OMED-CT ENDOCRINE DISORDER active 130338392 S NOMED-CT DYSLIPIDEMIA active 181161451 SNOMED- CT VITAMIN D DEFICIENCY active 00178935 SNOMED-CT HYPERGLYCEMIA active 06807113 SNOMED -CT NEUROPATHY active 921128574 SNOMED-CT PRE-EXISTING CONDITION IMPROVED 09/24/2024 active 632720862 SNOMED-CT ACUTE SINUSITIS 01/30/2020 resolved 44131152 SNO MED-CT ACUTE BRONCHITIS 01/30/2020 resolved 75489251 SN OMED-CT URI 01/30/2020 resolved 18373331 SNOMED-CT Allergies and Adverse Reactions Allergy Substance Reaction Severity Start Date Concern Status Co de Code System No Known Drug Allergies Mild Active 810300630 SNOMED-CT Plan of Treatment Colonoscopy 05/05/2021 Pre [...] Diagnosis Start Date Code Code Sys tem Adult health examination 06/05/2024 [id number] [facility] [place] MED-CT Personal Care Team Section Performer Name Performer Role Active Date Inactive Da te
--- OUTSIDE RECORDS SUMMARY | 2024-11-03 09:10 | XMS_ITS ---
Author Organization Unknown Address [address] [place] [phone] Phone Care Team Providers Care Stratigrapher Name Role Phone ARPITA Sloan MD Attending Unavailable Immunization Immunization Date Status Additional [...] em Smoking History Never smoker (Never Smoked) 179001385 SNOMED CT Smoking History Unknown if ever smoked [address] Sex Male Medications Medication Start Date End Date Route Frequency Dose Code Code System Medication Instructions Home Meds Aspirin 81MG Oral Tablet, Chewable 10/23/2014 06/04/2024 By mouth Daily 1 TABLET 667396 RxNorm 1 TABLET By mouth Daily OTC Orgovyx 120 MG Oral Tablet 06/04/2024 Unknown By Mouth Daily 1 TABLET 3361913 RxNorm 1 TABLET By Mouth Daily Xtandi 80 MG Oral Tablet 06/04/2024 Unknown By Mouth Daily 2 TABLET 5572742 RxNorm 2 TABLET By Mouth Daily At bedtime Black Cohosh 540 MG Oral Capsule 06/04/2024 Unknown By Mouth Daily 1 CAPSULE RxNorm 1 CAPSULE By Mouth Daily Drisdol 47989YK Oral Capsule, Liquid Filled 06/18/2024 Unknown By Mouth Once a week 1 CAPSULE 1784544 RxNorm 1 CAPSULE By Mouth Once a week For 12 weeksThree weeks after your last dose please repeat vitamin-D level lab Gabapentin 300 MG Oral Tablet, Extended Release, 24 HR 06/22/2024 06/25/2024 By Mouth Every 12 hours 1 TABLET 1165033 RxNorm 1 TABLET By Mouth Every 12 hours Gabapentin 300MG Oral Capsule 06/25/2024 Unknown By Mouth Every 12 hours 1 CAPSULE 362930 RxNorm 1 CAPSULE By Mouth Every 12 [...] Date Status Code Code System HYPERTENSION active 09273343 SNOMED- CT PLAQUE PSORIASIS active 549288223 SNO MED-CT HEALTH CHECK UP active 592753265 SNOM ED-CT ELEVATED PSA 04/06/2022 active 616504394 SNOMED -CT MALIGNANT NEOPLASM OF PROSTATE 03/27/2023 active 77954136 SNOMED-CT MALE HOT FLASH (DISORDER) 06/04/2024 active 637675201588376 SNOMED-CT ENCOUNTER FOR SCREENING FOR CARDIOVASCULAR DISORDERS active 089815690 SNOMED-CT INFECTION SCREENING active 885125194 SNOMED-CT SCREENING FOR HEP C active 512022939 SNOMED-CT HISTORY OF ANEMIA active 889191980 SN OMED-CT ENDOCRINE DISORDER active 612670949 S NOMED-CT DYSLIPIDEMIA active 412424841 SNOMED- CT VITAMIN D DEFICIENCY active 14387409 SNOMED-CT HYPERGLYCEMIA active 98586703 SNOMED -CT NEUROPATHY active 074565097 SNOMED-CT PRE-EXISTING CONDITION IMPROVED 09/24/2024 active 507319903 SNOMED-CT ACUTE SINUSITIS 01/30/2020 resolved 87201095 SNO MED-CT ACUTE BRONCHITIS 01/30/2020 resolved 35763028 SN OMED-CT URI 01/30/2020 resolved 28283857 SNOMED-CT Allergies and Adverse Reactions Allergy Substance Reaction Severity Start Date Concern Status Co de Code System No Known Drug Allergies Mild Active 755162692 SNOMED-CT Plan of Treatment Colonoscopy 05/05/2021 Pre OP Phone 05/05/2021 Covid Vaccine 1st Dose Moderna 10/15/19 21 Covid Vaccine 2nd Dose Moderna 10/15/19 21 Covid Vaccine 1st Dose Moderna 11/12/19 21 Covid Vaccine 2nd Dose Moderna 11/12/19 21 Physical Wellness 30 06/11/2025 Description Due Date Details Instructions Vitamin D 09/17/2024 Due for recheck Screening Colonoscopy 05/12/2026 last one 1 @ [facility] abhijeet/ Otoniel, repeat 5 years. Personal Care Team Section Performer Name Performer Role Active Date Inactive Da chantelle
--- OUTSIDE RECORDS SUMMARY | 2024-11-03 09:11 | XMS_ITS ---
Author Organization Unknown Address [address] [place] [phone] Phone Care Team Providers Care Sales Professional Name Role Phone Gloria MANZO Attending Unavailable ARPITA Sloan MD Primary Unavailable Immunization Immunization Date Status Additional Notes [...] em Smoking History Never smoker (Never Smoked) 475266649 SNOMED CT Smoking History Unknown if ever smoked [address] Sex Male Medications Medication Start Date End Date Route Frequency Dose Code Code System Medication Instructions Home Meds Aspirin 81MG Oral Tablet, Chewable 10/23/2014 06/04/2024 By mouth Daily 1 TABLET 722519 RxNorm 1 TABLET By mouth Daily OTC Dulcolax 5MG Oral Tablet, Enteric Coated 04/19/2021 03/22/2022 BY MOUTH DIRECTED 4 TABLET 486203 RxNorm TAKE 4 TABLET BY MOUTH DIRECTED for Colon Prep Polyethylene Glycol Powder 04/19/2021 03/22/2022 ORAL DIRECTED 238 GRAM RxNorm Take and mix the entire bottle with 64 ounces of Gatorade and drink 1/2 the night before the colonoscopy and drink the remaining 1/2 the day of the colonoscopy. Orgovyx 120 MG Oral Tablet 06/04/2024 Unknown By Mouth Daily 1 TABLET 1451763 RxNorm 1 TABLET By Mouth Daily Xtandi 80 MG Oral Tablet 06/04/2024 Unknown By Mouth Daily 2 TABLET 5327245 RxNorm 2 TABLET By Mouth Daily At bedtime Black Cohosh 540 MG Oral Capsule 06/04/2024 Unknown By Mouth Daily 1 CAPSULE RxNorm 1 CAPSULE By Mouth Daily Drisdol 83380IF Oral Capsule, Liquid Filled 06/18/2024 Unknown By Mouth Once a week 1 CAPSULE 6465829 RxNorm 1 CAPSULE By Mouth Once a week For 12 weeksThree weeks after your last dose please repeat vitamin-D level lab Gabapentin 300 MG Oral Tablet, Extended Release, 24 HR 06/22/2024 06/25/2024 By Mouth Every 12 hours 1 TABLET 5376516 RxNorm 1 TABLET By Mouth Every 12 hours Gabapentin 300MG Oral Capsule 06/25/2024 Unknown By Mouth Every 12 hours 1 CAPSULE 182411 RxNorm 1 CAPSULE By Mouth Every 12 [...] Date Status Code Code System HYPERTENSION active 18864213 SNOMED- CT PLAQUE PSORIASIS active 867119031 SNO MED-CT HEALTH CHECK UP active 252723094 SNOM ED-CT ELEVATED PSA 04/06/2022 active 850789742 SNOMED -CT MALIGNANT NEOPLASM OF PROSTATE 03/27/2023 active 92201453 SNOMED-CT MALE HOT FLASH (DISORDER) 06/04/2024 active 211741253521505 SNOMED-CT ENCOUNTER FOR SCREENING FOR CARDIOVASCULAR DISORDERS active 966522762 SNOMED-CT INFECTION SCREENING active 908387175 SNOMED-CT SCREENING FOR HEP C active 027876793 SNOMED-CT HISTORY OF ANEMIA active 140697974 SN OMED-CT ENDOCRINE DISORDER active 966862391 S NOMED-CT DYSLIPIDEMIA active 057458760 SNOMED- CT VITAMIN D DEFICIENCY active 23605558 SNOMED-CT HYPERGLYCEMIA active 63493777 SNOMED -CT NEUROPATHY active 014258409 SNOMED-CT PRE-EXISTING CONDITION IMPROVED 09/24/2024 active 615709313 SNOMED-CT ACUTE SINUSITIS 01/30/2020 resolved 27370204 SNO MED-CT ACUTE BRONCHITIS 01/30/2020 resolved 92624737 SN OMED-CT URI 01/30/2020 resolved 47221364 SNOMED-CT Allergies and Adverse Reactions Allergy Substance Reaction Severity Start Date Concern Status Co de Code System No Known Drug Allergies Mild Active 443051470 SNOMED-CT Plan of Treatment Colonoscopy 05/05/2021 Pre [...] Diagnosis Start Date Code Code Sys tem Stool finding 05/12/2021 551163249 SNOMED-CT Personal Care Team Section Performer Name Performer Role Active Date Inactive Da chantelle
--- OUTSIDE RECORDS SUMMARY | 2024-11-03 09:11 | XMS_ITS ---
Author Organization Unknown Address [address] [place] [phone] Phone Care Team Providers Care Rotary Rig Engine Operator Name Role Phone Lalitha Carreon Attending Unavailable ARPITA Sloan MD Primary Unavailable [...] 50 mcg/0.25mL dose 10/14/2020 Completed 207 CVX Results VENIPUNCTURE - Collect Date/ Time: 03/27/2023 09:13 [facility] ID: [id number] [place], [place], [id number] LOINC: Test Value Unit Reference Range Code Code System Flag Test name: VENIPUNCTURE ORDERING PROVIDER: CARY QUINN TEST(S) ORDERED: PSA HAS ABN BEEN SIGNED NO DATE DRAWN: 03-27-23 TIME DRAWN: 912 DRAWN BY: MLS DRAW SITE: [email or web address],Right PATIENT REACTION: None Social History Type Status Start Date End Date Code Code Syst em Smoking History Never smoker (Never Smoked) 847719659 SNOMED CT Smoking History Unknown if ever smoked [address] Sex Male Medications Medication Start Date End Date Route Frequency Dose Code Code System Medication Instructions Home Meds Aspirin 81MG Oral Tablet, Chewable 10/23/2014 06/04/2024 By mouth Daily 1 TABLET 762811 RxNorm 1 TABLET By mouth Daily OTC Orgovyx 120 MG Oral Tablet 06/04/2024 Unknown By Mouth Daily 1 TABLET 1187294 RxNorm 1 TABLET By Mouth Daily Xtandi 80 MG Oral Tablet 06/04/2024 Unknown By Mouth Daily 2 TABLET 8686560 RxNorm 2 TABLET By Mouth Daily At bedtime Black Cohosh 540 MG Oral Capsule 06/04/2024 Unknown By Mouth Daily 1 CAPSULE RxNorm 1 CAPSULE By Mouth Daily Drisdol 14080YG Oral Capsule, Liquid Filled 06/18/2024 Unknown By Mouth Once a week 1 CAPSULE 7668364 RxNorm 1 CAPSULE By Mouth Once a week For 12 weeksThree weeks after your last dose please repeat vitamin-D level lab Gabapentin 300 MG Oral Tablet, Extended Release, 24 HR 06/22/2024 06/25/2024 By Mouth Every 12 hours 1 TABLET [id number] RxNorm 1 TABLET By Mouth Every 12 hours Gabapentin 300MG Oral Capsule 06/25/2024 Unknown By Mouth Every 12 hours 1 CAPSULE [id number] RxNorm 1 CAPSULE By Mouth Every 12 hours Assessment You had the following problems:HYPERTENSIONPLAQUE PSORIASISHEALTH CHECK UPELEVATED PSAMALIGNANT NEOPLASM OF PROSTATEMALE HOT FLASH (DISORDER)ENCOUNTER FOR SCREENING FOR CARDIOVASCULAR DISORDERSINFECTION SCREENINGSCREENING FOR HEP CHISTORY OF ANEMIAENDOCRINE DISORDERDYSLIPIDEMIAVITAMIN D DEFICIENCYHYPERGLYCEMIANEUROPATHYPRE-EXISTING CONDITION IMPROVED Diagnosis: C61 / MALIGNANT PROSTATE. OUTSIDE ORDER SENT WITH BLOOD TO [facility] FOR RESULTING. Hospital Discharge Instructions Should you have any questions prior to discharge, please contact a member of your healthcare team. If you have left the hospital and have any questions, please contact your primary care physician. Reason For Referral No Data Found Problems Problem Start Date Resolved Date Status Code Code System HYPERTENSION active 58869474 SNOMED- CT PLAQUE PSORIASIS active 540497356 SNO MED-CT HEALTH CHECK UP active 247348239 SNOM ED-CT ELEVATED PSA 04/06/2022 active 165193014 SNOMED -CT MALIGNANT NEOPLASM OF PROSTATE 03/27/2023 active 38843291 SNOMED-CT MALE HOT FLASH (DISORDER) 06/04/2024 active 804541652487240 SNOMED-CT ENCOUNTER FOR SCREENING FOR CARDIOVASCULAR DISORDERS active 898271969 SNOMED-CT INFECTION SCREENING active 867095246 SNOMED-CT SCREENING FOR HEP C active 071254399 SNOMED-CT HISTORY OF ANEMIA active 414837668 SN OMED-CT ENDOCRINE DISORDER active 378065858 S NOMED-CT DYSLIPIDEMIA active 632706212 SNOMED- CT VITAMIN D DEFICIENCY active 38406032 SNOMED-CT HYPERGLYCEMIA active 63515966 SNOMED -CT NEUROPATHY active 911568453 SNOMED-CT PRE-EXISTING CONDITION IMPROVED 09/24/2024 active 067407627 SNOMED-CT ACUTE SINUSITIS 01/30/2020 resolved 67057784 SNO MED-CT ACUTE BRONCHITIS 01/30/2020 resolved 58677505 SN OMED-CT URI 01/30/2020 resolved 07654559 SNOMED-CT Allergies and Adverse Reactions Allergy Substance Reaction Severity Start Date Concern Status Co de Code System No Known Drug Allergies Mild Active 657209089 SNOMED-CT Plan of Treatment Colonoscopy 05/05/2021 Pre OP Phone 05/05/2021 Covid Vaccine 1st Dose Moderna 10/15/19 21 Covid Vaccine 2nd Dose Moderna 10/15/19 21 Covid Vaccine 1st Dose Moderna 11/12/19 21 Covid Vaccine 2nd Dose Moderna 11/12/19 21 Physical Wellness 30 06/11/2025 Description Due Date Details Instructions Vitamin D 09/17/2024 Due for recheck Screening Colonoscopy 05/12/2026 last one 1 @ [facility] abhijeet/ Otoniel, repeat 5 years. Encounters Encounter Diagnosis Start Date Code Code Sys tem Primary malignant neoplasm of prostate 03/27/2023 93 983593 SNOMED-CT Personal Care Team Section Performer Name Performer Role Active Date Inactive Da chantelle
--- OUTSIDE RECORDS SUMMARY | 2024-11-03 09:12 | XMS_ITS ---
Author Organization Unknown Address [address] [place] [address] [phone] Phone Care Team Providers Care Mall Manager Name Role Phone PRINCESS RUEDA Attending Unavailable ARPITA Sloan MD Primary Unavailable [...] em Smoking History Never smoker (Never Smoked) 741138430 SNOMED CT Smoking History Unknown if ever smoked [address] Sex Male Medications Medication Start Date End Date Route Frequency Dose Code Code System Medication Instructions Home Meds Aspirin 81MG Oral Tablet, Chewable 10/23/2014 06/04/2024 By mouth Daily 1 TABLET 546006 RxNorm 1 TABLET By mouth Daily OTC Dulcolax 5MG Oral Tablet, Enteric Coated 04/19/2021 03/22/2022 BY MOUTH DIRECTED 4 TABLET 941686 RxNorm TAKE 4 TABLET BY MOUTH DIRECTED for Colon Prep Polyethylene Glycol Powder 04/19/2021 03/22/2022 ORAL DIRECTED 238 GRAM RxNorm Take and mix the entire bottle with 64 ounces of Gatorade and drink 1/2 the night before the colonoscopy and drink the remaining 1/2 the day of the colonoscopy. Orgovyx 120 MG Oral Tablet 06/04/2024 Unknown By Mouth Daily 1 TABLET 9820664 RxNorm 1 TABLET By Mouth Daily Xtandi 80 MG Oral Tablet 06/04/2024 Unknown By Mouth Daily 2 TABLET [id number] RxNorm 2 TABLET By Mouth Daily At bedtime Black Cohosh 540 MG Oral Capsule 06/04/2024 Unknown By Mouth Daily 1 CAPSULE RxNorm 1 CAPSULE By Mouth Daily Drisdol 00522OE Oral Capsule, Liquid Filled 06/18/2024 Unknown By Mouth Once a week 1 CAPSULE 6431990 RxNorm 1 CAPSULE By Mouth Once a week For 12 weeksThree weeks after your last dose please repeat vitamin-D level lab Gabapentin 300 MG Oral Tablet, Extended Release, 24 HR 06/22/2024 06/25/2024 By Mouth Every 12 hours 1 TABLET 2989026 RxNorm 1 TABLET By Mouth Every 12 hours Gabapentin 300MG Oral Capsule 06/25/2024 Unknown By Mouth Every 12 hours 1 CAPSULE 804728 RxNorm 1 CAPSULE By Mouth Every 12 [...] Date Status Code Code System HYPERTENSION active 69803871 SNOMED- CT PLAQUE PSORIASIS active 294964216 SNO MED-CT HEALTH CHECK UP active 595573035 SNOM ED-CT ELEVATED PSA 04/06/2022 active 791471565 SNOMED -CT MALIGNANT NEOPLASM OF PROSTATE 03/27/2023 active 93830884 SNOMED-CT MALE HOT FLASH (DISORDER) 06/04/2024 active 377037299985575 SNOMED-CT ENCOUNTER FOR SCREENING FOR CARDIOVASCULAR DISORDERS active 830489056 SNOMED-CT INFECTION SCREENING active 390851753 SNOMED-CT SCREENING FOR HEP C active 744416247 SNOMED-CT HISTORY OF ANEMIA active 028725057 SN OMED-CT ENDOCRINE DISORDER active 889261903 S NOMED-CT DYSLIPIDEMIA active 433013850 SNOMED- CT VITAMIN D DEFICIENCY active 01967560 SNOMED-CT HYPERGLYCEMIA active 76174673 SNOMED -CT NEUROPATHY active 567582467 SNOMED-CT PRE-EXISTING CONDITION IMPROVED 09/24/2024 active 686475427 SNOMED-CT ACUTE SINUSITIS 01/30/2020 resolved 10819359 SNO MED-CT ACUTE BRONCHITIS 01/30/2020 resolved 67143438 SN OMED-CT URI 01/30/2020 resolved 10714834 SNOMED-CT Allergies and Adverse Reactions Allergy Substance Reaction Severity Start Date Concern Status Co de Code System No Known Drug Allergies Mild Active 051321762 SNOMED-CT Plan of Treatment Colonoscopy 05/05/2021 Pre OP Phone 05/05/2021 Covid Vaccine 1st Dose Moderna 10/15/19 21 Covid Vaccine 2nd Dose Moderna 10/15/19 21 Covid Vaccine 1st Dose Moderna 11/12/19 21 Covid Vaccine 2nd Dose Moderna 11/12/19 21 Physical Wellness 30 06/11/2025 Description Due Date Details Instructions Vitamin D 09/17/2024 Due for recheck Screening Colonoscopy 05/12/2026 last one 1 @ [facility]/ Princess, repeat 5 years. Encounters Encounter Diagnosis Start Date Code Code Sys tem Stool finding 05/12/2021 702205285 SNOMED-CT Personal Care Team Section Performer Name Performer Role Active Date Inactive Da chantelle
--- OUTSIDE RECORDS SUMMARY | 2024-11-03 09:12 | XMS_ITS ---
Author Organization Unknown Address [address] [place], [place] [phone] Phone Care Team Providers Care Bakery Sales Clerk Name Role Phone Stephanie Squires Attending Unavailable Social History Type Status Start Date End Date Code Code Syst em Smoking History Never smoker (Never Smoked) 950046499 SNOMED CT Smoking History Unknown if ever smoked [address] Sex Male Medications Medication Start Date End Date Route Frequency Dose Code Code System Medication Instructions Home Meds Aspirin 81MG Oral Tablet, Chewable 10/23/2014 06/04/2024 By mouth Daily 1 TABLET 479689 RxNorm 1 TABLET By mouth Daily OTC Dulcolax 5MG Oral Tablet, Enteric Coated 04/19/2021 03/22/2022 BY MOUTH DIRECTED 4 TABLET 842499 RxNorm TAKE 4 TABLET BY MOUTH DIRECTED for Colon Prep Polyethylene Glycol Powder 04/19/2021 03/22/2022 ORAL DIRECTED 238 GRAM RxNorm Take and mix the entire bottle with 64 ounces of Gatorade and drink 1/2 the night before the colonoscopy and drink the remaining 1/2 the day of the colonoscopy. Orgovyx 120 MG Oral Tablet 06/04/2024 Unknown By Mouth Daily 1 TABLET 9517933 RxNorm 1 TABLET By Mouth Daily Xtandi 80 MG Oral Tablet 06/04/2024 Unknown By Mouth Daily 2 TABLET [id number] RxNorm 2 TABLET By Mouth Daily At bedtime Black Cohosh 540 MG Oral Capsule 06/04/2024 Unknown By Mouth Daily 1 CAPSULE RxNorm 1 CAPSULE By Mouth Daily Drisdol 25234QL Oral Capsule, Liquid Filled 06/18/2024 Unknown By Mouth Once a week 1 CAPSULE 3851895 RxNorm 1 CAPSULE By Mouth Once a week For 12 weeksThree weeks after your last dose please repeat vitamin-D level lab Gabapentin 300 MG Oral Tablet, Extended Release, 24 HR 06/22/2024 06/25/2024 By Mouth Every 12 hours 1 TABLET 3981160 RxNorm 1 TABLET By Mouth Every 12 hours Gabapentin 300MG Oral Capsule 06/25/2024 Unknown By Mouth Every 12 hours 1 CAPSULE 390264 RxNorm 1 CAPSULE By Mouth Every 12 [...] Date Status Code Code System HYPERTENSION active 87130973 SNOMED- CT PLAQUE PSORIASIS active 999097269 SNO MED-CT HEALTH CHECK UP active 173580554 SNOM ED-CT ELEVATED PSA 04/06/2022 active 807848582 SNOMED -CT MALIGNANT NEOPLASM OF PROSTATE 03/27/2023 active 79053831 SNOMED-CT MALE HOT FLASH (DISORDER) 06/04/2024 active 158452365791745 SNOMED-CT ENCOUNTER FOR SCREENING FOR CARDIOVASCULAR DISORDERS active 672120722 SNOMED-CT INFECTION SCREENING active 446989326 SNOMED-CT SCREENING FOR HEP C active 783568590 SNOMED-CT HISTORY OF ANEMIA active 985849586 SN OMED-CT ENDOCRINE DISORDER active 763447395 S NOMED-CT DYSLIPIDEMIA active 726922961 SNOMED- CT VITAMIN D DEFICIENCY active 74710491 SNOMED-CT HYPERGLYCEMIA active 95914679 SNOMED -CT NEUROPATHY active 203579919 SNOMED-CT PRE-EXISTING CONDITION IMPROVED 09/24/2024 active 822132940 SNOMED-CT ACUTE SINUSITIS 01/30/2020 resolved 69943356 SNO MED-CT ACUTE BRONCHITIS 01/30/2020 resolved 24753794 SN OMED-CT URI 01/30/2020 resolved 69546553 SNOMED-CT Allergies and Adverse Reactions Allergy Substance Reaction Severity Start Date Concern Status Co de Code System No Known Drug Allergies Mild Active 380824579 SNOMED-CT Plan of Treatment Colonoscopy 05/05/2021 Pre [...] Diagnosis Start Date Code Code Sys tem Essential hypertension 03/28/2021 03659909 SNOME D-CT Personal Care Team Section Performer Name Performer Role Active Date Inactive Da te
--- OUTSIDE RECORDS SUMMARY | 2024-11-03 09:13 | XMS_ITS ---
Author Organization Unknown Address [address], [place] [phone] Phone Care Team Providers Care Corporate Counsel Name Role Phone CARY CHRISTENSENH Attending Unavailable Social History Type Status Start Date End Date Code Code Syst em Smoking History Never smoker (Never Smoked) 794131764 SNOMED CT Smoking History Unknown if ever smoked [address] Sex Male Medications Medication Start Date End Date Route Frequency Dose Code Code System Medication Instructions Home Meds Aspirin 81MG Oral Tablet, Chewable 10/23/2014 06/04/2024 By mouth Daily 1 TABLET 758176 RxNorm 1 TABLET By mouth Daily OTC Orgovyx 120 MG Oral Tablet 06/04/2024 Unknown By Mouth Daily 1 TABLET 4714132 RxNorm 1 TABLET By Mouth Daily Xtandi 80 MG Oral Tablet 06/04/2024 Unknown By Mouth Daily 2 TABLET 3402221 RxNorm 2 TABLET By Mouth Daily At bedtime Black Cohosh 540 MG Oral Capsule 06/04/2024 Unknown By Mouth Daily 1 CAPSULE RxNorm 1 CAPSULE By Mouth Daily Drisdol 53761XR Oral Capsule, Liquid Filled 06/18/2024 Unknown By Mouth Once a week 1 CAPSULE 8191326 RxNorm 1 CAPSULE By Mouth Once a week For 12 weeksThree weeks after your last dose please repeat vitamin-D level lab Gabapentin 300 MG Oral Tablet, Extended Release, 24 HR 06/22/2024 06/25/2024 By Mouth Every 12 hours 1 TABLET 5565178 RxNorm 1 TABLET By Mouth Every 12 hours Gabapentin 300MG Oral Capsule 06/25/2024 Unknown By Mouth Every 12 hours 1 CAPSULE 519000 RxNorm 1 CAPSULE By Mouth Every 12 [...] Date Status Code Code System HYPERTENSION active 38152129 SNOMED- CT PLAQUE PSORIASIS active 278705793 SNO MED-CT HEALTH CHECK UP active 057877625 SNOM ED-CT ELEVATED PSA 04/06/2022 active 501692737 SNOMED -CT MALIGNANT NEOPLASM OF PROSTATE 03/27/2023 active 34930330 SNOMED-CT MALE HOT FLASH (DISORDER) 06/04/2024 active 176026908128506 SNOMED-CT ENCOUNTER FOR SCREENING FOR CARDIOVASCULAR DISORDERS active 300315547 SNOMED-CT INFECTION SCREENING active 511544845 SNOMED-CT SCREENING FOR HEP C active 546504949 SNOMED-CT HISTORY OF ANEMIA active 593144202 SN OMED-CT ENDOCRINE DISORDER active 006348169 S NOMED-CT DYSLIPIDEMIA active 172392446 SNOMED- CT VITAMIN D DEFICIENCY active 23669505 SNOMED-CT HYPERGLYCEMIA active 18679956 SNOMED -CT NEUROPATHY active 369479030 SNOMED-CT PRE-EXISTING CONDITION IMPROVED 09/24/2024 active 656584795 SNOMED-CT ACUTE SINUSITIS 01/30/2020 resolved 88112484 SNO MED-CT ACUTE BRONCHITIS 01/30/2020 resolved 95604826 SN OMED-CT URI 01/30/2020 resolved 14728655 SNOMED-CT Allergies and Adverse Reactions Allergy Substance Reaction Severity Start Date Concern Status Co de Code System No Known Drug Allergies Mild Active 423603865 SNOMED-CT Plan of Treatment Colonoscopy 05/05/2021 Pre OP Phone 05/05/2021 Covid Vaccine 1st Dose Moderna 10/15/19 21 Covid Vaccine 2nd Dose Moderna 10/15/19 21 Covid Vaccine 1st Dose Moderna 11/12/19 21 Covid Vaccine 2nd Dose Moderna 11/12/19 21 Physical Wellness 30 06/11/2025 Description Due Date Details Instructions Vitamin D 09/17/2024 Due for recheck Screening Colonoscopy 05/12/2026 last one 1 @ [facility] abhijeet/ Otoniel, repeat 5 years. Encounters Encounter Diagnosis Start Date Code Code Sys tem Primary malignant neoplasm of prostate 03/27/2023 93 433115 SNOMED-CT Personal Care Team Section Performer Name Performer Role Active Date Inactive Da te
--- OUTSIDE RECORDS SUMMARY | 2024-11-03 09:14 | XMS_ITS ---
Author Organization Unknown Address [address] [place], [place] [phone] Phone Care Team Providers Care Backhaul Driver Name Role Phone ARPITA Sloan [facility] Attending Unavailable Social History Type Status Start Date End Date Code Code Syst em Smoking History Never smoker (Never Smoked) 821910119 SNOMED CT Smoking History Unknown if ever smoked [address] Sex Male Medications Medication Start Date End Date Route Frequency Dose Code Code System Medication Instructions Home Meds Aspirin 81MG Oral Tablet, Chewable 10/23/2014 06/04/2024 By mouth Daily 1 TABLET 220561 RxNorm 1 TABLET By mouth Daily OTC Orgovyx 120 MG Oral Tablet 06/04/2024 Unknown By Mouth Daily 1 TABLET 3494501 RxNorm 1 TABLET By Mouth Daily Xtandi 80 MG Oral Tablet 06/04/2024 Unknown By Mouth Daily 2 TABLET 5088074 RxNorm 2 TABLET By Mouth Daily At bedtime Black Cohosh 540 MG Oral Capsule 06/04/2024 Unknown By Mouth Daily 1 CAPSULE RxNorm 1 CAPSULE By Mouth Daily Drisdol 41667SY Oral Capsule, Liquid Filled 06/18/2024 Unknown By Mouth Once a week 1 CAPSULE 6222953 RxNorm 1 CAPSULE By Mouth Once a week For 12 weeksThree weeks after your last dose please repeat vitamin-D level lab Gabapentin 300 MG Oral Tablet, Extended Release, 24 HR 06/22/2024 06/25/2024 By Mouth Every 12 hours 1 TABLET 2934823 RxNorm 1 TABLET By Mouth Every 12 hours Gabapentin 300MG Oral Capsule 06/25/2024 Unknown By Mouth Every 12 hours 1 CAPSULE 375399 RxNorm 1 CAPSULE By Mouth Every 12 [...] Date Status Code Code System HYPERTENSION active 05237180 SNOMED- CT PLAQUE PSORIASIS active 533597852 SNO MED-CT HEALTH CHECK UP active 059173783 SNOM ED-CT ELEVATED PSA 04/06/2022 active 164612347 SNOMED -CT MALIGNANT NEOPLASM OF PROSTATE 03/27/2023 active 48812730 SNOMED-CT MALE HOT FLASH (DISORDER) 06/04/2024 active 229021985006193 SNOMED-CT ENCOUNTER FOR SCREENING FOR CARDIOVASCULAR DISORDERS active 016527088 SNOMED-CT INFECTION SCREENING active 269653822 SNOMED-CT SCREENING FOR HEP C active 271660519 SNOMED-CT HISTORY OF ANEMIA active 130842113 SN OMED-CT ENDOCRINE DISORDER active 740430872 S NOMED-CT DYSLIPIDEMIA active 422858101 SNOMED- CT VITAMIN D DEFICIENCY active 96522401 SNOMED-CT HYPERGLYCEMIA active 95378129 SNOMED -CT NEUROPATHY active 673346277 SNOMED-CT PRE-EXISTING CONDITION IMPROVED 09/24/2024 active 506163657 SNOMED-CT ACUTE SINUSITIS 01/30/2020 resolved 60681051 SNO MED-CT ACUTE BRONCHITIS 01/30/2020 resolved 96265196 SN OMED-CT URI 01/30/2020 resolved 69961278 SNOMED-CT Allergies and Adverse Reactions Allergy Substance Reaction Severity Start Date Concern Status Co de Code System No Known Drug Allergies Mild Active 884524171 SNOMED-CT Plan of Treatment Colonoscopy 05/05/2021 Pre [...] Sys tem Primary malignant neoplasm of prostate 06/06/2023 93 889174 SNOMED-CT Personal Care Team Section Performer Name Performer Role Active Date Inactive Da te
--- OUTSIDE RECORDS SUMMARY | 2024-11-03 09:14 | XMS_ITS ---
Author Organization Unknown Address [address], [place] [phone] Phone Care Team Providers Care Welfare Project Manager Name Role Phone TEENA BAIRD Attending Unavailable Results VITAMIN D 25 HYDROXYVITAMIN D2 D3 - Collect Date/Time: 09/24/2024 08:13 [facility] ID: [id number] [address], [place], [phone] LOINC: 50739-4 Test Value Unit Reference Range Code Code System Flag VITAMIN D, 25-OH, TOTAL 45 30-100 61783-7 LOINC VITAMIN D, 25-OH, D3 20 1989- LOINC VITAMIN D, 25-OH, D2 25 2236-8 LOINC Social History Type Status Start Date End Date Code Code Syst em Smoking History Never smoker (Never Smoked) 410590098 SNOMED CT Smoking History Unknown if ever smoked [address] Sex Male Medications Medication Start Date End Date Route Frequency Dose Code Code System Medication Instructions Home Meds Orgovyx 120 MG Oral Tablet 06/04/2024 Unknown By Mouth Daily 1 TABLET 9462161 RxNorm 1 TABLET By Mouth Daily Xtandi 80 MG Oral Tablet 06/04/2024 Unknown By Mouth Daily 2 TABLET 1666496 RxNorm 2 TABLE T By Mouth Daily At bedtime Black Cohosh 540 MG Oral Capsule 06/04/2024 Unknown By Mouth Daily 1 CAPSULE RxNorm 1 CAPSULE By Mouth Daily Drisdol 48540BN Oral Capsule, Liquid Filled 06/18/2024 Unknown By Mouth Once a week 1 CAPSULE 9662869 RxNorm 1 CAPSULE By Mouth Once a week For 12 weeksThree weeks after your last dose please repeat vitamin-D level lab Gabapentin 300MG Oral Capsule 06/25/2024 Unknown By Mouth Every 12 hours 1 CAPSULE 908625 RxNorm 1 CAPSULE By Mouth Every 12 [...] Date Status Code Code System HYPERTENSION active 35224039 SNOMED- CT PLAQUE PSORIASIS active 646163335 SNO MED-CT HEALTH CHECK UP active 695522952 SNOM ED-CT ELEVATED PSA 04/06/2022 active 265589187 SNOMED -CT MALIGNANT NEOPLASM OF PROSTATE 03/27/2023 active 97192600 SNOMED-CT MALE HOT FLASH (DISORDER) 06/04/2024 active 122806279524059 SNOMED-CT ENCOUNTER FOR SCREENING FOR CARDIOVASCULAR DISORDERS active 255283473 SNOMED-CT INFECTION SCREENING active 856851048 SNOMED-CT SCREENING FOR HEP C active 114470406 SNOMED-CT HISTORY OF ANEMIA active 139049637 SN OMED-CT ENDOCRINE DISORDER active 325491742 S NOMED-CT DYSLIPIDEMIA active 695904891 SNOMED- CT VITAMIN D DEFICIENCY active 16356832 SNOMED-CT HYPERGLYCEMIA active 39834505 SNOMED -CT NEUROPATHY active 477071132 SNOMED-CT PRE-EXISTING CONDITION IMPROVED 09/24/2024 active 493524589 SNOMED-CT ACUTE SINUSITIS 01/30/2020 resolved 07720767 SNO MED-CT ACUTE BRONCHITIS 01/30/2020 resolved 61638814 SN OMED-CT URI 01/30/2020 resolved 31825722 SNOMED-CT Allergies and Adverse Reactions Allergy Substance Reaction Severity Start Date Concern Status Co de Code System No Known Drug Allergies Mild Active 014110020 SNOMED-CT Plan of Treatment Colonoscopy 05/05/2021 Pre [...] Diagnosis Start Date Code Code Sys tem Vitamin D deficiency 09/24/2024 80933825 SNOMED- CT Personal Care Team Section Performer Name Performer Role Active Date Inactive Da te
--- OUTSIDE RECORDS SUMMARY | 2024-11-03 09:15 | XMS_ITS ---
Author Organization Unknown Address [address] [place] [phone] Phone Care Team Providers Care Press Operator Apprentice Name Role Phone ANIRUDH CHOWDHURY Attending Unavailable ARPITA Sloan MD Primary Unavailable [...] CVX Results VENIPUNCTURE - Collect Date/ Time: 03/28/2021 08:59 [facility] ID: [id number] [address] [place] [address], [id number] LOINC: Test Value Unit Reference Range Code Code System Flag Test name: VENIPUNCTURE ORDERING PROVIDER: Tavia Brown TEST(S) ORDERED: Lipid, CMP, CBC HAS ABN BEEN SIGNED YES DATE DRAWN: 03/28/21 TIME DRAWN: 8:30 DRAWN BY: Tavia Gorman DRAW SITE: Antecubital,Right PATIENT REACTION: None Social History Type Status Start Date End Date Code Code Syst em Smoking History Never smoker (Never Smoked) 407022858 SNOMED CT Smoking History Unknown if ever smoked [address] Sex Male Medications Medication Start Date End Date Route Frequency Dose Code Code System Medication Instructions Home Meds Aspirin 81MG Oral Tablet, Chewable 10/23/2014 06/04/2024 By mouth Daily 1 TABLET 108602 RxNorm 1 TABLET By mouth Daily OTC Dulcolax 5MG Oral Tablet, Enteric Coated 04/19/2021 03/22/2022 BY MOUTH DIRECTED 4 TABLET 897510 RxNorm TAKE 4 TABLET BY MOUTH DIRECTED for Colon Prep Polyethylene Glycol Powder 04/19/2021 03/22/2022 ORAL DIRECTED 238 GRAM RxNorm Take and mix the entire bottle with 64 ounces of Gatorade and drink 1/2 the night before the colonoscopy and drink the remaining 1/2 the day of the colonoscopy. Orgovyx 120 MG Oral Tablet 06/04/2024 Unknown By Mouth Daily 1 TABLET 2922135 RxNorm 1 TABLET By Mouth Daily Xtandi 80 MG Oral Tablet 06/04/2024 Unknown By Mouth Daily 2 TABLET 9532396 RxNorm 2 TABLET By Mouth Daily At bedtime Black Cohosh 540 MG Oral Capsule 06/04/2024 Unknown By Mouth Daily 1 CAPSULE RxNorm 1 CAPSULE By Mouth Daily Drisdol 34945WD Oral Capsule, Liquid Filled 06/18/2024 Unknown By Mouth Once a week 1 CAPSULE 9733089 RxNorm 1 CAPSULE By Mouth Once a week For 12 weeksThree weeks after your last dose please repeat vitamin-D level lab Gabapentin 300 MG Oral Tablet, Extended Release, 24 HR 06/22/2024 06/25/2024 By Mouth Every 12 hours 1 TABLET 4426487 RxNorm 1 TABLET By Mouth Every 12 hours Gabapentin 300MG Oral Capsule 06/25/2024 Unknown By Mouth Every 12 hours 1 CAPSULE 340009 RxNorm 1 CAPSULE By Mouth Every 12 [...] physician. Reason For Referral No Data Found Procedures Procedure Name Date Status Code Code Clemente m Colonoscopy 05/12/2021 completed 12026738 SNOMEDCT Problems Problem Start Date Resolved Date Status Code Code System HYPERTENSION active 78909021 SNOMED- CT PLAQUE PSORIASIS active 091408740 SNO MED-CT HEALTH CHECK UP active 989167358 SNOM ED-CT ELEVATED PSA 04/06/2022 active 605005211 SNOMED -CT MALIGNANT NEOPLASM OF PROSTATE 03/27/2023 active 84273554 SNOMED-CT MALE HOT FLASH (DISORDER) 06/04/2024 active 684587530742768 SNOMED-CT ENCOUNTER FOR SCREENING FOR CARDIOVASCULAR DISORDERS active 862568313 SNOMED-CT INFECTION SCREENING active 136454608 SNOMED-CT SCREENING FOR HEP C active 306041374 SNOMED-CT HISTORY OF ANEMIA active 657213208 SN OMED-CT ENDOCRINE DISORDER active 491543717 S NOMED-CT DYSLIPIDEMIA active 800292904 SNOMED- CT VITAMIN D DEFICIENCY active 46716379 SNOMED-CT HYPERGLYCEMIA active 45049643 SNOMED -CT NEUROPATHY active 160748364 SNOMED-CT PRE-EXISTING CONDITION IMPROVED 09/24/2024 active 909583058 SNOMED-CT ACUTE SINUSITIS 01/30/2020 resolved 00549481 SNO MED-CT ACUTE BRONCHITIS 01/30/2020 resolved 09335869 SN OMED-CT URI 01/30/2020 resolved 71146359 SNOMED-CT Allergies and Adverse Reactions Allergy Substance Reaction Severity Start Date Concern Status Co de Code System No Known Drug Allergies Mild Active 480999119 SNOMED-CT Plan of Treatment Colonoscopy 05/05/2021 Pre [...] Code Code Sys tem Essential hypertension 03/28/2021 87890611 SNOME D-CT Personal Care Team Section Performer Name Performer Role Active Date Inactive Da te
--- OUTSIDE RECORDS SUMMARY | 2024-11-03 09:15 | XMS_ITS ---
Author Organization Unknown Address [address], [place] [phone] Phone Care Team Providers Care Clinical Nursing Coordinator Name Role Phone ARPITA Sloan [facility] Attending Unavailable Social History Type Status Start Date End Date Code Code Syst em Smoking History Never smoker (Never Smoked) 402038716 SNOMED CT Smoking History Unknown if ever smoked [address] Sex Male Medications Medication Start Date End Date Route Frequency Dose Code Code System Medication Instructions Home Meds Aspirin 81MG Oral Tablet, Chewable 10/23/2014 06/04/2024 By mouth Daily 1 TABLET 147191 RxNorm 1 TABLET By mouth Daily OTC Orgovyx 120 MG Oral Tablet 06/04/2024 Unknown By Mouth Daily 1 TABLET 5210386 RxNorm 1 TABLET By Mouth Daily Xtandi 80 MG Oral Tablet 06/04/2024 Unknown By Mouth Daily 2 TABLET 4873014 RxNorm 2 TABLET By Mouth Daily At bedtime Black Cohosh 540 MG Oral Capsule 06/04/2024 Unknown By Mouth Daily 1 CAPSULE RxNorm 1 CAPSULE By Mouth Daily Drisdol 81425QI Oral Capsule, Liquid Filled 06/18/2024 Unknown By Mouth Once a week 1 CAPSULE 4192540 RxNorm 1 CAPSULE By Mouth Once a week For 12 weeksThree weeks after your last dose please repeat vitamin-D level lab Gabapentin 300 MG Oral Tablet, Extended Release, 24 HR 06/22/2024 06/25/2024 By Mouth Every 12 hours 1 TABLET 3511851 RxNorm 1 TABLET By Mouth Every 12 hours Gabapentin 300MG Oral Capsule 06/25/2024 Unknown By Mouth Every 12 hours 1 CAPSULE 786807 RxNorm 1 CAPSULE By Mouth Every 12 [...] Date Status Code Code System HYPERTENSION active 95613915 SNOMED- CT PLAQUE PSORIASIS active 444842783 SNO MED-CT HEALTH CHECK UP active 756954415 SNOM ED-CT ELEVATED PSA 04/06/2022 active 401141515 SNOMED -CT MALIGNANT NEOPLASM OF PROSTATE 03/27/2023 active 63989100 SNOMED-CT MALE HOT FLASH (DISORDER) 06/04/2024 active 075079804244800 SNOMED-CT ENCOUNTER FOR SCREENING FOR CARDIOVASCULAR DISORDERS active 393399174 SNOMED-CT INFECTION SCREENING active 933205193 SNOMED-CT SCREENING FOR HEP C active 409006357 SNOMED-CT HISTORY OF ANEMIA active 392013473 SN OMED-CT ENDOCRINE DISORDER active 074176370 S NOMED-CT DYSLIPIDEMIA active 817257188 SNOMED- CT VITAMIN D DEFICIENCY active 54871515 SNOMED-CT HYPERGLYCEMIA active 14785474 SNOMED -CT NEUROPATHY active 175115899 SNOMED-CT PRE-EXISTING CONDITION IMPROVED 09/24/2024 active 991278993 SNOMED-CT ACUTE SINUSITIS 01/30/2020 resolved 55383411 SNO MED-CT ACUTE BRONCHITIS 01/30/2020 resolved 23271532 SN OMED-CT URI 01/30/2020 resolved 97030190 SNOMED-CT Allergies and Adverse Reactions Allergy Substance Reaction Severity Start Date Concern Status Co de Code System No Known Drug Allergies Mild Active 848074724 SNOMED-CT Plan of Treatment Colonoscopy 05/05/2021 Pre [...] Code Code Sys tem Adult health examination 03/29/2022 392774403 [facility] [place] MED-CT Personal Care Team Section Performer Name Performer Role Active Date Inactive Da te
--- OUTSIDE RECORDS SUMMARY | 2024-11-03 09:15 | XMS_ITS ---
Author Organization Unknown Address [address], [place] [phone] Phone Care Team Providers Care Burning Plant Operator Name Role Phone CARY CHRISTENSENH Attending Unavailable Social History Type Status Start Date End Date Code Code Syst em Smoking History Never smoker (Never Smoked) 779959945 SNOMED CT Smoking History Unknown if ever smoked [address] Sex Male Medications Medication Start Date End Date Route Frequency Dose Code Code System Medication Instructions Home Meds Aspirin 81MG Oral Tablet, Chewable 10/23/2014 06/04/2024 By mouth Daily 1 TABLET 581223 RxNorm 1 TABLET By mouth Daily OTC Orgovyx 120 MG Oral Tablet 06/04/2024 Unknown By Mouth Daily 1 TABLET 6626363 RxNorm 1 TABLET By Mouth Daily Xtandi 80 MG Oral Tablet 06/04/2024 Unknown By Mouth Daily 2 TABLET 9679099 RxNorm 2 TABLET By Mouth Daily At bedtime Black Cohosh 540 MG Oral Capsule 06/04/2024 Unknown By Mouth Daily 1 CAPSULE RxNorm 1 CAPSULE By Mouth Daily Drisdol 01506OQ Oral Capsule, Liquid Filled 06/18/2024 Unknown By Mouth Once a week 1 CAPSULE 6110683 RxNorm 1 CAPSULE By Mouth Once a week For 12 weeksThree weeks after your last dose please repeat vitamin-D level lab Gabapentin 300 MG Oral Tablet, Extended Release, 24 HR 06/22/2024 06/25/2024 By Mouth Every 12 hours 1 TABLET 4082972 RxNorm 1 TABLET By Mouth Every 12 hours Gabapentin 300MG Oral Capsule 06/25/2024 Unknown By Mouth Every 12 hours 1 CAPSULE 892454 RxNorm 1 CAPSULE By Mouth Every 12 [...] Date Status Code Code System HYPERTENSION active 92254861 SNOMED- CT PLAQUE PSORIASIS active 832621710 SNO MED-CT HEALTH CHECK UP active 210184487 SNOM ED-CT ELEVATED PSA 04/06/2022 active 132342806 SNOMED -CT MALIGNANT NEOPLASM OF PROSTATE 03/27/2023 active 08295773 SNOMED-CT MALE HOT FLASH (DISORDER) 06/04/2024 active 349575369317733 SNOMED-CT ENCOUNTER FOR SCREENING FOR CARDIOVASCULAR DISORDERS active 164825754 SNOMED-CT INFECTION SCREENING active 641633483 SNOMED-CT SCREENING FOR HEP C active 032778464 SNOMED-CT HISTORY OF ANEMIA active 141705485 SN OMED-CT ENDOCRINE DISORDER active 170357233 S NOMED-CT DYSLIPIDEMIA active 948282499 SNOMED- CT VITAMIN D DEFICIENCY active 96849802 SNOMED-CT HYPERGLYCEMIA active 90858225 SNOMED -CT NEUROPATHY active 144455994 SNOMED-CT PRE-EXISTING CONDITION IMPROVED 09/24/2024 active 313039795 SNOMED-CT ACUTE SINUSITIS 01/30/2020 resolved 71301025 SNO MED-CT ACUTE BRONCHITIS 01/30/2020 resolved 66230354 SN OMED-CT URI 01/30/2020 resolved 09379108 SNOMED-CT Allergies and Adverse Reactions Allergy Substance Reaction Severity Start Date Concern Status Co de Code System No Known Drug Allergies Mild Active 110623646 SNOMED-CT Plan of Treatment Colonoscopy 05/05/2021 Pre [...] Sys tem Primary malignant neoplasm of prostate 09/03/2023 93 367684 SNOMED-CT Personal Care Team Section Performer Name Performer Role Active Date Inactive Da te
--- OUTSIDE RECORDS SUMMARY | 2024-11-03 09:15 | XMS_ITS ---
Author Organization Unknown Address [address] [place] [phone] Phone Care Team Providers Care House Wirer Helper Name Role Phone ARPITA Sloan MD Attending [...] CVX Results VENIPUNCTURE - Collect Date/ Time: 11/13/2022 08:59 [facility] ID: [id number] [address] [place], [place], [phone] LOINC: Test Value Unit Reference Range Code Code System Flag Test name: VENIPUNCTURE ORDERING PROVIDER: arpita TEST(S) ORDERED: psa HAS ABN BEEN SIGNED NO DATE DRAWN: 11/13/2022 TIME DRAWN: 08:50 DRAWN BY: TANG barcenas DRAW SITE: Antecubital,Right PATIENT REACTION: None Social History Type Status Start Date End Date Code Code Syst em Smoking History Never smoker (Never Smoked) 517205618 SNOMED CT Smoking History Unknown if ever smoked [address] Sex Male Medications Medication Start Date End Date Route Frequency Dose Code Code System Medication Instructions Home Meds Aspirin 81MG Oral Tablet, Chewable 10/23/2014 06/04/2024 By mouth Daily 1 TABLET 306578 RxNorm 1 TABLET By mouth Daily OTC Orgovyx 120 MG Oral Tablet 06/04/2024 Unknown By Mouth Daily 1 TABLET 9036168 RxNorm 1 TABLET By Mouth Daily Xtandi 80 MG Oral Tablet 06/04/2024 Unknown By Mouth Daily 2 TABLET 0038643 RxNorm 2 TABLET By Mouth Daily At bedtime Black Cohosh 540 MG Oral Capsule 06/04/2024 Unknown By Mouth Daily 1 CAPSULE RxNorm 1 CAPSULE By Mouth Daily Drisdol 11468QO Oral Capsule, Liquid Filled 06/18/2024 Unknown By Mouth Once a week 1 CAPSULE 8599058 RxNorm 1 CAPSULE By Mouth Once a week For 12 weeksThree weeks after your last dose please repeat vitamin-D level lab Gabapentin 300 MG Oral Tablet, Extended Release, 24 HR 06/22/2024 06/25/2024 By Mouth Every 12 hours 1 TABLET 5935025 RxNorm 1 TABLET By Mouth Every 12 hours Gabapentin 300MG Oral Capsule 06/25/2024 Unknown By Mouth Every 12 hours 1 CAPSULE 843226 RxNorm 1 CAPSULE By Mouth Every 12 hours Assessment You had the following problems:HYPERTENSIONPLAQUE PSORIASISHEALTH CHECK UPELEVATED PSAMALIGNANT NEOPLASM OF PROSTATEMALE HOT FLASH (DISORDER)ENCOUNTER FOR SCREENING FOR CARDIOVASCULAR DISORDERSINFECTION SCREENINGSCREENING FOR HEP CHISTORY OF ANEMIAENDOCRINE DISORDERDYSLIPIDEMIAVITAMIN D DEFICIENCYHYPERGLYCEMIANEUROPATHYPRE-EXISTING CONDITION IMPROVED Diagnosis Elevated PSA (R9720) Hospital Discharge Instructions Should you have any questions prior to discharge, please contact a member of your healthcare team. If you have left the hospital and have any questions, please contact your primary care physician. Reason For Referral No Data Found Problems Problem Start Date Resolved Date Status Code Code System HYPERTENSION active 67242293 SNOMED- CT PLAQUE PSORIASIS active 112671302 SNO MED-CT HEALTH CHECK UP active 208189697 SNOM ED-CT ELEVATED PSA 04/06/2022 active 014519513 SNOMED -CT MALIGNANT NEOPLASM OF PROSTATE 03/27/2023 active 10551696 SNOMED-CT MALE HOT FLASH (DISORDER) 06/04/2024 active 770660698609147 SNOMED-CT ENCOUNTER FOR SCREENING FOR CARDIOVASCULAR DISORDERS active 536520275 SNOMED-CT INFECTION SCREENING active 881837674 SNOMED-CT SCREENING FOR HEP C active 396948972 SNOMED-CT HISTORY OF ANEMIA active 069134829 SN OMED-CT ENDOCRINE DISORDER active 395789646 S NOMED-CT DYSLIPIDEMIA active 215803410 SNOMED- CT VITAMIN D DEFICIENCY active 51788429 SNOMED-CT HYPERGLYCEMIA active 14894102 SNOMED -CT NEUROPATHY active 752469890 SNOMED-CT PRE-EXISTING CONDITION IMPROVED 09/24/2024 active 450064380 SNOMED-CT ACUTE SINUSITIS 01/30/2020 resolved 03896422 SNO MED-CT ACUTE BRONCHITIS 01/30/2020 resolved 59167311 SN OMED-CT URI 01/30/2020 resolved 60609697 SNOMED-CT Allergies and Adverse Reactions Allergy Substance Reaction Severity Start Date Concern Status Co de Code System No Known Drug Allergies Mild Active 465987244 SNOMED-CT Plan of Treatment Colonoscopy 05/05/2021 Pre [...] Diagnosis Start Date Code Code Sys tem Raised prostate specific antigen 11/13/2022 67630316 5 SNOMED-CT Personal Care Team Section Performer Name Performer Role Active Date Inactive Tate lockhart
--- OUTSIDE RECORDS SUMMARY | 2024-11-03 09:15 | XMS_ITS ---
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 Code Code System Body Mass Index 29.64 kg/m2 03/22/2022 14:57 Initial 81775 -5 LOINC Systolic Blood Pressure 136 mm[Hg] 03/22/2022 14:57 Initial 8480- 6 LOINC Diastolic Blood Pressure 90 mm[Hg] 03/22/2022 14:57 Initial 8462- 4 LOINC Body Surface Area 2.15 m2 03/22/2022 14:57 Initial 3140- 1 LOINC Height 177.800 0 cm 70.00 in 03/22/2022 14:57 Initial 8302- 2 LOINC O2 Saturation 98 % 2021 14:57 Initial 30083 -5 [facility] Pulse 104.0 /min 03/22/2022 14:57 Initial 8867- 4 LOINC Respiration 16 /min 03/22/20 14:57 Initial 9279- 1 [facility] Temperature 36.6 Karyna 97.8 F 03/22/20 14:57 Initial 8310- 5 [facility] Weight 93.71 kg 206.60 lbs 03/22/2022 14:57 Initial 91497 -7 [facility] Medications Medication Start Date End Date Route Frequency Dose Code Code System Medication Instructions Home Meds Aspirin 81MG Oral Tablet, Chewable 10/23/2014 06/04/2024 By mouth Daily 1 TABLET 508565 RxNorm 1 TABLET By mouth Daily OTC Dulcolax 5MG Oral Tablet, Enteric Coated 04/19/2021 03/22/2022 BY MOUTH DIRECTED 4 TABLET 374430 RxNorm TAKE 4 TABLET BY MOUTH DIRECTED for Colon Prep Polyethylene Glycol Powder 04/19/2021 03/22/2022 ORAL DIRECTED 238 GRAM RxNorm Take and mix the entire bottle with 64 ounces of Gatorade and drink 1/2 the night before the colonoscopy and drink the remaining 1/2 the day of the colonoscopy. Orgovyx 120 MG Oral Tablet 06/04/2024 Unknown By Mouth Daily 1 TABLET 4941380 RxNorm 1 TABLET By Mouth Daily Xtandi 80 MG Oral Tablet 06/04/2024 Unknown By Mouth Daily 2 TABLET 5443953 RxNorm 2 TABLET By Mouth Daily At bedtime Black Cohosh 540 MG Oral Capsule 06/04/2024 Unknown By Mouth Daily 1 CAPSULE RxNorm 1 CAPSULE By Mouth Daily Drisdol 50780AY Oral Capsule, Liquid Filled 06/18/2024 Unknown By Mouth Once a week 1 CAPSULE 2665305 RxNorm 1 CAPSULE By Mouth Once a week For 12 weeksThree weeks after your last dose please repeat vitamin-D level lab Gabapentin 300 MG Oral Tablet, Extended Release, 24 HR 06/22/2024 06/25/2024 By Mouth Every 12 hours 1 TABLET 7236591 RxNorm 1 TABLET By Mouth Every 12 hours Gabapentin 300MG Oral Capsule 06/25/2024 Unknown By Mouth Every 12 hours 1 CAPSULE 733434 RxNorm 1 CAPSULE By Mouth Every 12 hours Assessment You had the following problems:HYPERTENSIONPLAQUE PSORIASISHEALTH CHECK UPELEVATED PSAMALIGNANT NEOPLASM OF PROSTATEMALE HOT FLASH (DISORDER)ENCOUNTER FOR SCREENING FOR CARDIOVASCULAR DISORDERSINFECTION SCREENINGSCREENING FOR HEP CHISTORY OF ANEMIAENDOCRINE DISORDERDYSLIPIDEMIAVITAMIN D DEFICIENCYHYPERGLYCEMIANEUROPATHYPRE-EXISTING CONDITION IMPROVED Assessment/ Plan: 1) Annual exam/ HM- Tdap is due in 2030. COVID vaccines are UTD. Declined PCV13/23 and Shingrix vaccines. Colon cancer screening is due in 2025. Check PSA and CBC. 2) HTN stage 1- On no prescription medications. Takes ASA daily. 3) Plaque psoriasis- On OTC medications. 4) Overweight with a BMI 29- Check CMP and lipid panel. Return to clinic in 1 year. Hospital Discharge Instructions Should you have any questions prior to discharge, please contact a member of your healthcare team. If you have left the hospital and have any questions, please contact your primary care physician. Reason For Referral Reason for Referral: ELEVATED PSA Receiving Provider: [facility] [place] [place] Appointment Date: 01/16/2023 Additional Information: @ 1000 ARRIVE AT 0945. PT [facility] [place] 11-27-22 Problems Problem Start Date Resolved Date Status Code Code System HYPERTENSION active 39070595 SNOMED- CT PLAQUE PSORIASIS active 301393069 SNO MED-CT HEALTH CHECK UP active 879144814 SNOM ED-CT ELEVATED PSA 04/06/2022 active 272816341 SNOMED -CT MALIGNANT NEOPLASM OF PROSTATE 03/27/2023 active 07477183 SNOMED-CT MALE HOT FLASH (DISORDER) 06/04/2024 active 469230413260209 SNOMED-CT ENCOUNTER FOR SCREENING FOR CARDIOVASCULAR DISORDERS active 460748659 SNOMED-CT INFECTION SCREENING active 636971022 SNOMED-CT SCREENING FOR HEP C active 345157069 SNOMED-CT HISTORY OF ANEMIA active 228735788 SN OMED-CT ENDOCRINE DISORDER active 769003236 S NOMED-CT DYSLIPIDEMIA active 481007477 SNOMED- CT VITAMIN D DEFICIENCY active 44112453 SNOMED-CT HYPERGLYCEMIA active 78755607 SNOMED -CT NEUROPATHY active 454994237 SNOMED-CT PRE-EXISTING CONDITION IMPROVED 09/24/2024 active 150904232 SNOMED-CT ACUTE SINUSITIS 01/30/2020 resolved 75007644 SNO MED-CT ACUTE BRONCHITIS 01/30/2020 resolved 76617677 SN OMED-CT URI 01/30/2020 resolved 89672582 SNOMED-CT Allergies and Adverse Reactions Allergy Substance Reaction Severity Start Date Concern Status Co de Code System No Known Drug Allergies Mild Active 239631031 SNOMED-CT Plan of Treatment Colonoscopy 05/05/2021 Pre OP Phone 05/05/2021 Covid Vaccine 1st Dose Moderna 10/15/19 21 Covid Vaccine 2nd Dose Moderna 10/15/19 21 Covid Vaccine 1st Dose Moderna 11/12/19 21 Covid Vaccine 2nd Dose Moderna 11/12/19 21 Physical Wellness 30 06/11/2025 [facility] 01/16/2023 Description Due Date Details Instructions Vitamin D 09/17/2024 Due for recheck Screening Colonoscopy 05/12/2026 last one 1 @ MAX jha/ Otoniel, repeat 5 years. Future Order Description Future Order Date Futu re Order Loinc: PSA SCREENING 03/22/2022 LOINC: 2857-1 CBC W DIFF 03/22/2022 LOINC: 08414-7 COMPREHENSIVE METABOLIC PANEL 03/22/2022 L OINC: 26199-3 Encounters Encounter Diagnosis Start Date Code Code Sys tem Adult health examination 03/22/2022 077455553 SNO MED-CT Personal Care Team Section Performer Name Performer Role Active Date Inactive Da te Progress Notes [facility] 03/22/2022 15:39 Admission Date/Time: 03/22/2022 11:26 Brittany Barros MD Clinic Visit Note Chief Complaint: ANNUAL Has the patient received a COVID Vaccine? Yes Nurse Note: this nurse note is documented by Tavia Gorman CMA. 66 yr old male present to [facility] today for his yearly annual visit Depression Screening PHQ9 completed by the patient. See scanned image. PHQ-9 Total Score: 0 If score >=5, indicate Plan: Score Assessment: 0-4= not an indicator or depression, 5-9=mild depression, 10- 14=moderate depression, 15-19=moderately severe depression, 20-27=severe depression. History of Present Illness: 66 yr old male present to [facility] today for his yearly annual visit. Patient will be due for TDAP in 2030. He had his COVID vaccines. Patient will be due for colonoscopy in 2025. Patient is due for PSA check. His last labs were in 8/23/21 which were CBC, CMP and Lipid. Patient declines PCV13/23. Patient PHQ9 score was an 0 today in clinic. Patient states he is doing well and has no CC. He maintains a BP log at home. His home BP readings varies from 117-120s over 70s-80s. He denies any SOB on exertion and at rest or chest pain. Allergy Table Allergen Type Reaction No Known Food Allergies food No Known Environmental Allergies environment No Known Drug Allergies medication Problem List Hypertension Plaque psoriasis Health check up Vital Signs: This Visit HtWt Date/Time BP (mm/Hg) BP Position/Site Heart Rate Resp Temp (?F) SPO2% Pain Score Height (in) Weight (lbs/ozs) BMI Head Cir (cm) 03/22/2022 14:57 136/90 Sitting/Left Arm 104 16 97.8 Tympanic 98 % 70 in 206.6 lbs 29.64 PHYSICAL EXAM: General - no acute distress. HEENT - Pupils equal and reactive to light and accommodation, tympanic membranes clear, no pharyngeal exudate, no cervical lymphadenopathy Heart - Regular rate and rhythm, no murmurs. No carotid bruits. Lungs - Clear to auscultation bilaterally Abdomen - Bowel sounds positive, non- distended, non-tender, soft, no hepatosplenomegaly Extremities - no edema bilaterally. Pulses are intact in LE b/l. Lab Results: This Visit: No Labs Available Assessment/ Plan: 1) Annual exam/ HM- Tdap is due in 2030. COVID vaccines are UTD. Declined PCV13/23 and Shingrix vaccines. Colon cancer screening is due in 2025. Check PSA and CBC. 2) HTN stage 1- On no prescription medications. Takes ASA daily. 3) Plaque psoriasis- On OTC medications. 4) Overweight with a BMI 29- Check CMP and lipid panel. Return to clinic in 1 year. - total minutes were spent on this calendar date on these patient specific activities: (maria a all that occurred) Documenting clinical information in the electronic health record Counseling and education to the patient/family/caregiver Preparation to see the patient by reviewing test result Ordered medications, tests or procedures Preparation to see the patient by reviewing outside records Referring and communicating with other health career agent Obtaining and/or reviewing separately obtained history Independent interpretation of results and communicating results to the patient/family/caregiver Performing a medically appropriate examination/evaluation Care coordination (not reported separately) Scribe Statement: Chris Harvey, acted as a scribe for Brittany Barros MD. Documentation was scribed in the presence and at the direction of the provider. Portions of this note were transcribed by a scribe. Brittany Harvey MD, personally performed the history, exam and decision making and confirm the accuracy of the note. Ordered & Completed Meds Table: No Current Medications Available Discharge Med List: Discharge Medications Medication Special Instructions Start Date Prescribing Aspirin 81MG Oral Tablet, Chewable 1 TABLET By mouth Daily OTC 10/23/2014
--- OUTSIDE RECORDS SUMMARY | 2024-11-03 09:15 | XMS_ITS ---
Author Organization Unknown Address [address] [place] [address] [phone] Phone Care Team Providers Care Director Of Hemophilia Name Role Phone ANIRUDH CHOWDHURY Attending Unavailable [...] em Smoking History Never smoker (Never Smoked) 680862303 SNOMED CT Smoking History Unknown if ever smoked [address] Sex Male Vital Signs Vital Sign Value Unit [place] [facility] [place] [facility] Date/Time Recent/Initial? Code Code System Body Mass Index 27.89 kg/m2 03/21/2021 16:26 Initial 84470 -5 LOINC Systolic Blood Pressure 130 mm[Hg] 03/21/2021 16:26 Initial 8480- 6 LOINC Diastolic Blood Pressure 86 mm[Hg] 03/21/2021 16:26 Initial 8462- 4 LOINC Body Surface Area 2.09 m2 03/21/2021 16:26 Initial 3140- 1 LOINC Height 177.800 0 cm 70.00 in 03/21/2021 16:26 Initial 8302- 2 LOINC O2 Saturation 97 % 08/16/ 2021 16:26 Initial 56588 -5 LOINC Pulse 91.0 /min 03/21/2021 16:26 Initial 8867- 4 LOINC Respiration 16 /min 03/21/20 16:26 Initial 9279- 1 [facility] Temperature 36.7 Karyna 98.1 F 03/21/20 16:26 Initial 8310- 5 [facility] Weight 88.18 kg 194.40 lbs 03/21/2021 16:26 Initial 11891 -7 [facility] Medications Medication Start Date End Date Route Frequency Dose Code Code System Medication Instructions Home Meds Aspirin 81MG Oral Tablet, Chewable 10/23/2014 06/04/2024 By mouth Daily 1 TABLET 630705 RxNorm 1 TABLET By mouth Daily OTC Dulcolax 5MG Oral Tablet, Enteric Coated 04/19/2021 03/22/2022 BY MOUTH DIRECTED 4 TABLET 747367 RxNorm TAKE 4 TABLET BY MOUTH DIRECTED for Colon Prep Polyethylene Glycol Powder 04/19/2021 03/22/2022 ORAL DIRECTED 238 GRAM RxNorm Take and mix the entire bottle with 64 ounces of Gatorade and drink 1/2 the night before the colonoscopy and drink the remaining 1/2 the day of the colonoscopy. Orgovyx 120 MG Oral Tablet 06/04/2024 Unknown By Mouth Daily 1 TABLET 2439466 RxNorm 1 TABLET By Mouth Daily Xtandi 80 MG Oral Tablet 06/04/2024 Unknown By Mouth Daily 2 TABLET 5972327 RxNorm 2 TABLET By Mouth Daily At bedtime Black Cohosh 540 MG Oral Capsule 06/04/2024 Unknown By Mouth Daily 1 CAPSULE RxNorm 1 CAPSULE By Mouth Daily Elise 54567MI Oral Capsule, Liquid Filled 06/18/2024 Unknown By Mouth Once a week 1 CAPSULE 2953396 RxNorm 1 CAPSULE By Mouth Once a week For 12 weeksThree weeks after your last dose please repeat vitamin-D level lab Gabapentin 300 MG Oral Tablet, Extended Release, 24 HR 06/22/2024 06/25/2024 By Mouth Every 12 hours 1 TABLET 1507165 RxNorm 1 TABLET By Mouth Every 12 hours Gabapentin 300MG Oral Capsule 06/25/2024 Unknown By Mouth Every 12 hours 1 CAPSULE 984183 RxNorm 1 CAPSULE By Mouth Every 12 hours Assessment You had the following problems:HYPERTENSIONPLAQUE PSORIASISHEALTH CHECK UPELEVATED PSAMALIGNANT NEOPLASM OF PROSTATEMALE HOT FLASH (DISORDER)ENCOUNTER FOR SCREENING FOR CARDIOVASCULAR DISORDERSINFECTION SCREENINGSCREENING FOR HEP CHISTORY OF ANEMIAENDOCRINE DISORDERDYSLIPIDEMIAVITAMIN D DEFICIENCYHYPERGLYCEMIANEUROPATHYPRE-EXISTING CONDITION IMPROVED Assessment/Plan: 1) Annual - WNL. Update labs CBC, CMP, Lipids, PSA. 2) HTN - Controlled No meds. ASA daily. 3) Plaque Psoriasis - Stable OTC cream. 4) Over Weight - BMI 27.89 Return to clinic in 1 Year Hospital Discharge Instructions Should you have any questions prior to discharge, please contact a member of your healthcare team. If you have left the hospital and have any questions, please contact your primary care physician. Reason For Referral No Data Found Problems Problem Start Date Resolved Date Status Code Code System HYPERTENSION active 32389330 SNOMED- CT PLAQUE PSORIASIS active 398720953 SNO MED-CT HEALTH CHECK UP active 014989353 SNOM ED-CT ELEVATED PSA 04/06/2022 active 417374803 SNOMED -CT MALIGNANT NEOPLASM OF PROSTATE 03/27/2023 active 77488695 SNOMED-CT MALE HOT FLASH (DISORDER) 06/04/2024 active 631078565535396 SNOMED-CT ENCOUNTER FOR SCREENING FOR CARDIOVASCULAR DISORDERS active 919621283 SNOMED-CT INFECTION SCREENING active 116226267 SNOMED-CT SCREENING FOR HEP C active 517325215 SNOMED-CT HISTORY OF ANEMIA active 095547140 SN OMED-CT ENDOCRINE DISORDER active 996672577 S NOMED-CT DYSLIPIDEMIA active 765082686 SNOMED- CT VITAMIN D DEFICIENCY active 52669872 SNOMED-CT HYPERGLYCEMIA active 88248193 SNOMED -CT NEUROPATHY active 777371280 SNOMED-CT PRE-EXISTING CONDITION IMPROVED 09/24/2024 active 356157501 SNOMED-CT ACUTE SINUSITIS 01/30/2020 resolved 46494694 SNO MED-CT ACUTE BRONCHITIS 01/30/2020 resolved 74180676 SN OMED-CT URI 01/30/2020 resolved 49950240 SNOMED-CT Allergies and Adverse Reactions Allergy Substance Reaction Severity Start Date Concern Status Co de Code System No Known Drug Allergies Mild Active 075634398 SNOMED-CT Plan of Treatment Colonoscopy 05/05/2021 Pre OP Phone 05/05/2021 Covid Vaccine 1st Dose Moderna 10/15/19 21 Covid Vaccine 2nd Dose Moderna 10/15/19 21 Covid Vaccine 1st Dose Moderna 11/12/19 21 Covid Vaccine 2nd Dose Moderna 11/12/19 21 Physical Wellness 30 06/11/2025 Description Due Date Details Instructions Vitamin D 09/17/2024 Due for recheck Screening Colonoscopy 05/12/2026 last one 1 @ [facility]/ Otoniel, repeat 5 years. Future Order Description Future Order Date Futu re Order Loinc: CBC W DIFF 03/21/2021 LOINC: 53110-4 COMPREHENSIVE METABOLIC PANEL 03/21/2021 L OINC: 92213-7 Encounters Encounter Diagnosis Start Date Code Code Sys tem Adult health examination 03/21/2021 [id number] SNO MED-CT Personal Care Team Section Performer Name Performer Role Active Date Inactive Da te Progress Notes
--- OUTSIDE RECORDS SUMMARY | 2024-11-03 09:16 | XMS_ITS ---
Author Organization Unknown Address [address] [place] [address] [phone] Phone Care Team Providers Care Air And Water Filler Name Role Phone TEENA BAIRD Attending Unavailable [...] em Smoking History Never smoker (Never Smoked) 507793527 SNOMED CT Smoking History Unknown if ever smoked [address] Sex Male Vital Signs Vital Sign Value Unit [place] Value [place] Unit Date/Time Recent/Initial? Code Code System Body Mass Index 26.79 kg/m2 06/04/2024 08:16 Initial 03134 -5 LOINC Systolic Blood Pressure 140 mm[Hg] 06/04/2024 08:29 Most Recent 8480- 6 LOINC Diastolic Blood Pressure 92 mm[Hg] 06/04/2024 08:29 Most Recent 8462- 4 LOINC Systolic Blood Pressure 132 mm[Hg] 06/04/2024 08:16 Initial 8480- 6 LOINC Diastolic Blood Pressure 96 mm[Hg] 06/04/2024 08:16 Initial 8462- 4 LOINC Body Surface Area 2.13 m2 06/04/2024 08:16 Initial 3140- 1 LOINC Height 182.880 0 cm 72.00 in 06/04/2024 08:16 Initial 8302- 2 LOINC O2 Saturation 100 % 2023 08:16 Initial 71846 -5 LOINC Pulse 100.0 /min 06/04/2024 08:16 Initial 8867- 4 LOINC Respiration 20 /min 06/04/20 08:16 Initial 9279- 1 [facility] Temperature 36.5 Karyna 97.7 F 06/04/20 08:16 Initial 8310- 5 LOINC Weight 89.58 kg 197.50 lbs 06/04/2024 08:16 Initial 39593 -7 [facility] Medications Medication Start Date End Date Route Frequency Dose Code Code System Medication Instructions Home Meds Orgovyx 120 MG Oral Tablet 06/04/2024 Unknown By Mouth Daily 1 TABLET 5590015 RxNorm 1 TABLET By Mouth Daily Xtandi 80 MG Oral Tablet 06/04/2024 Unknown By Mouth Daily 2 TABLET 6700965 RxNorm 2 TABLE T By Mouth Daily At bedtime Black Cohosh 540 MG Oral Capsule 06/04/2024 Unknown By Mouth Daily 1 CAPSULE RxNorm 1 CAPSULE By Mouth Daily Drisdol 42388WT Oral Capsule, Liquid Filled 06/18/2024 Unknown By Mouth Once a week 1 CAPSULE 9757159 RxNorm 1 CAPSULE By Mouth Once a week For 12 weeksThree weeks after your last dose please repeat vitamin-D level lab Gabapentin 300 MG Oral Tablet, Extended Release, 24 HR 06/22/2024 06/25/2024 By Mouth Every 12 hours 1 TABLET 6094225 RxNorm 1 TABLET By Mouth Every 12 hours Gabapentin 300MG Oral Capsule 06/25/2024 Unknown By Mouth Every 12 hours 1 CAPSULE 366460 RxNorm 1 CAPSULE By Mouth Every 12 [...] Date Status Code Code System HYPERTENSION active 44858236 SNOMED- CT PLAQUE PSORIASIS active 547580093 SNO MED-CT HEALTH CHECK UP active 861423460 SNOM ED-CT ELEVATED PSA 04/06/2022 active 426229311 SNOMED -CT MALIGNANT NEOPLASM OF PROSTATE 03/27/2023 active 12309229 SNOMED-CT MALE HOT FLASH (DISORDER) 06/04/2024 active 286361774315041 SNOMED-CT ENCOUNTER FOR SCREENING FOR CARDIOVASCULAR DISORDERS active 561812836 SNOMED-CT INFECTION SCREENING active 088909327 SNOMED-CT SCREENING FOR HEP C active 003793093 SNOMED-CT HISTORY OF ANEMIA active 468523711 SN OMED-CT ENDOCRINE DISORDER active 222875117 S NOMED-CT DYSLIPIDEMIA active 472853730 SNOMED- CT VITAMIN D DEFICIENCY active 10716692 SNOMED-CT HYPERGLYCEMIA active 80133717 SNOMED -CT NEUROPATHY active 764303221 SNOMED-CT PRE-EXISTING CONDITION IMPROVED 09/24/2024 active 316865614 SNOMED-CT ACUTE SINUSITIS 01/30/2020 resolved 65871045 SNO MED-CT ACUTE BRONCHITIS 01/30/2020 resolved 81739080 SN OMED-CT URI 01/30/2020 resolved 32034366 SNOMED-CT Allergies and Adverse Reactions Allergy Substance Reaction Severity Start Date Concern Status Co de Code System No Known Drug Allergies Mild Active 268049899 SNOMED-CT Plan of Treatment Colonoscopy 05/05/2021 Pre [...] Futu re Order Loinc: CBC W DIFF 06/04/2024 LOINC: 75798-0 COMPREHENSIVE METABOLIC PANEL 06/04/2024 L OINC: 17794-2 TSH 06/04/2024 LOINC: 52323-3 FREE T4 06/04/2024 LOINC: 3024-7 VITAMIN D 25 HYDROXYVITAMIN D2 D3 06/04/2024 LOINC: 92965-9 URIC ACID 06/04/2024 LOINC: 3084-1 HEMOGLOBIN A1C 06/04/2024 LOINC: 4548-4 MICROALBUMIN URINE 06/04/2024 LOINC: 83255 -1 FERRITIN 06/04/2024 LOINC: 2276-4 IRON BINDING CAPACITY 06/04/2024 LOINC: 25 00-7 VITAMIN B12 LEVEL 06/04/2024 LOINC: 2132-9 FOLIC ACID LEVEL 06/04/2024 LOINC: 2284-8 T3 TOTAL 06/04/2024 LOINC: 3053-6 HEP A TOTAL 06/04/2024 LOINC: 94804-8 HEP C ANTIBODY SCREENING [facility] 06/04/20 LOINC: 45988-4 OCCULT BLOOD STOOL FIT 1 SPEC 06/05/2024 L OINC: 5048-4 Encounters Encounter Diagnosis Start Date Code Code Sys tem Adult health examination 06/04/2024 [id number] SNO MED-CT Personal Care Team Section Performer Name Performer Role Active Date Inactive Da te Progress Notes [facility] 06/04/2024 13:10 Date of Service: 06/04/2024 Kacy Ruano DO Annual Visit Chief Complaint: ANNUAL Nurse Note: this nurse note is documented by Joselin Hernandez LPN Pt is a 69 yo male presents to [facility] today for his annual exam. Pt denies any change in his family medical history and in his medical history has had prostate removed within the last year. Pt states his blood pressure has been slightly elevated since being on Xtandi and Orgovyx. States they had found a possible spot on lymph node, so he had to do through radiation and finished that on 04-12-24. Seen Dr. Delgadillo on 05-16-24 and did PSA which was 0. Is scheduled in 3 months and 6 months for follow up PSA. States he has an appt with Dr. Henry, Radiologist that did his radiation on 06-18-24. States Dr. Delgadillo is having him take Black Cohosh for his hot flashes. Depression Screening PHQ9 completed by the patient. See scanned image. PHQ-9 Total Score: 0 If score >=10, indicate Plan: Score Assessment: 0-4= not an indicator or depression, 5-9=mild depression, 10-14=moderate depression, 15-19=moderately severe depression, 20-27=severe depression. Immunization Last Administered Table Immunization Administered Date Route COVID-19, mRNA, LNP-S, PF, 100 mcg/0.5mL dose or 50 mcg/0.25mL dose 06/24/2021 IM Tdap 03/21/2021 IM LAST TDAP: 03-21-2021 LAST FLU: declines COVID VACCINE: declines LAST LABS: 03-29-2022 cbc,cmp, lipid, psa MAMMOGRAM: NA DEXA SCAN: NA COLONOSCOPY: 05-12-2021 repeat 5 years EYE EXAM: greater than 1 year PAP SMEAR: NA DEPRESSION SCREENING: done at today's visit FALL RISK; done at today's visit I have informed the patient about the use of ambient listening and speech recognition technologies during our conversation. The patient has provided verbal consent for this recording, understanding that it will be used to enhance their care and improve service quality. The patient has been made aware of their rights regarding data privacy and retention. HISTORY OF PRESENT ILLNESS: The patient is a 69-year-old male who presents here for the annual exam. He experiences anxiety during doctor's visits. He monitors his blood pressure at home, which is typically lower than the readings taken during his radiation treatment. He underwent prostatectomy at the end of 2021 due to prostate cancer. A PET scan revealed no cancer, except for a questionable lymph node. Radiation therapy was completed on 04/14/2024. His PSA level, checked on the , is 0. He is scheduled to have blood work at [facility] in 3 months, another in 6 months, and a bone density test at [facility]. He was previously taking baby aspirin daily but has not done this recently. He has been on Xtandi for almost 2 years, which was prescribed prior to his radiation treatment. He experiences hot flashes, for which Dr. Henry, his radiologist, recommended cohosh. He also takes sqrg-swe-zbvnjuv vitamin C, vitamin D, and calcium daily. He consumes a significant amount of water daily. He has undergone 39 sessions of radiation. He does not take any blood pressure medication. SOCIAL HISTORY He has never smoked. He drinks alcohol occasionally. He denies any marijuana use. He denies any other drugs. Still working at the installing fiberoptics. RESULTS Laboratory Studies PSA is zero. Imaging PET scan showed no cancer, except one lymph node was questionable. Physical examination General - patient not in distress, cooperative, pleasant, appears slightly tired Heart - fine 90s to 106, mild tachy Respiratory - clear to auscultation bilateral Abdomen- soft, nontender, positive bowel sounds all quadrants Extremities - no edema bilateral ASSESSMENT AND PLAN Annual exam- adult visit with abnormal findings Schedule next annual exam for 2024 Tdap up-to-date next to schedule 2030 Flu and pneumonia vaccines offered - patient will consider History anemia- CBC, iron, B12, folic acid Dyslipidemia - lipid panel, CMP Vitamin-D deficiency -vitamin-D level Screening cardiovascular-A1c, Screening infection-hep a antibody Screening hep C hep C antibodies Endocrine disorder-TSH, T4 free, T3 total Patient to continue with hydration and nutrition, follow-up with Oncology Radiology as scheduled Return to clinic: A follow-up visit is scheduled in 10 days after labs will be done Allergy Table Allergen Type Reaction No Known Food Allergies Food No Known Environmental Allergies Environment No Known Drug Allergies Medication Active Home Meds Medication Dosage Route Frequency Last Dose Date Prescribing MD Special Instructions Xtandi 80 MG Oral Tablet 2 TABLET By Mouth Daily Existing Prescription Orgovyx 120 MG Oral Tablet 1 TABLET By Mouth Daily Existing Prescription HEALTH HISTORY: Problem List Hypertension Plaque psoriasis Health check up Elevated PSA Malignant neoplasm of prostate Male hot flash (disorder) Encounter for screening for cardiovascular disorders Infection screening Screening for Hep C History of anemia Endocrine disorder Dyslipidemia Vitamin D deficiency Surgery History Table Procedure Procedure Date Age Notes Colonoscopy 05/12/2021 65 w/ Otoniel [facility] repeat [facility] years. Family Hx Table: No Family History Available SOCIAL HISTORY: Smoking Status Years Use Start Year End Year Cessation Education Never chewed tobacco Never smoker Does Not Current Use History of Quantity Duration Marijuana x Alcohol rare Narcotics x Illicit Drugs x Vital Signs: This Visit HtWt Date/Time BP (mm/Hg) BP Position/Site Heart Rate Resp Temp (F) SPO2% Pain Score Height (in) Weight (lbs/ozs) BMI Head Cir (cm) 06/04/2024 08:29 140/92 Sitting/Right Arm 06/04/2024 08:16 132/96 Sitting/Left Arm 100 20 97.7 Temporal Scanning 100 % 72 in 197.8 26.79 Lab Results: This Visit: No Labs Available total minutes were spent on this calendar [...] x Referring and communicating with other health assisted living care manager x Obtaining and/or reviewing separately obtained history x Independent interpretation of results and communicating results to the patient/family/caregiver x Performing a medically appropriate examination/evaluation Care coordination (not reported separately) Meds Given This Visit: Meds ordered and administered this visit: No Current Medications Available Discharge Med List: Discharge Medications Medication Special Instructions Start Date Prescribing Orgovyx 120 MG Oral Tablet 1 TABLET By Mouth Daily 06/04/2024 Unknown Xtandi 80 MG Oral Tablet 2 TABLET By Mouth Daily At bedtime 06/04/2024 Unknown Black Cohosh 540 MG Oral Capsule 1 CAPSULE By Mouth Daily 06/04/2024 Unknown
--- OUTSIDE RECORDS SUMMARY | 2024-11-03 09:16 | XMS_ITS ---
Author Organization Unknown Address [address], [place] [phone] Phone Care Team Providers Care Advisory Application Developer Name Role Phone ARPITA Sloan [facility] Attending Unavailable Social History Type Status Start Date End Date Code Code Syst em Smoking History Never smoker (Never Smoked) 135274338 SNOMED CT Smoking History Unknown if ever smoked [address] Sex Male Medications Medication Start Date End Date Route Frequency Dose Code Code System Medication Instructions Home Meds Aspirin 81MG Oral Tablet, Chewable 10/23/2014 06/04/2024 By mouth Daily 1 TABLET 364002 RxNorm 1 TABLET By mouth Daily OTC Orgovyx 120 MG Oral Tablet 06/04/2024 Unknown By Mouth Daily 1 TABLET 8072592 RxNorm 1 TABLET By Mouth Daily Xtandi 80 MG Oral Tablet 06/04/2024 Unknown By Mouth Daily 2 TABLET 3573419 RxNorm 2 TABLET By Mouth Daily At bedtime Black Cohosh 540 MG Oral Capsule 06/04/2024 Unknown By Mouth Daily 1 CAPSULE RxNorm 1 CAPSULE By Mouth Daily Drisdol 40868HH Oral Capsule, Liquid Filled 06/18/2024 Unknown By Mouth Once a week 1 CAPSULE 7222015 RxNorm 1 CAPSULE By Mouth Once a week For 12 weeksThree weeks after your last dose please repeat vitamin-D level lab Gabapentin 300 MG Oral Tablet, Extended Release, 24 HR 06/22/2024 06/25/2024 By Mouth Every 12 hours 1 TABLET 4937853 RxNorm 1 TABLET By Mouth Every 12 hours Gabapentin 300MG Oral Capsule 06/25/2024 Unknown By Mouth Every 12 hours 1 CAPSULE 778245 RxNorm 1 CAPSULE By Mouth Every 12 [...] Date Status Code Code System HYPERTENSION active 70070258 SNOMED- CT PLAQUE PSORIASIS active 897231376 SNO MED-CT HEALTH CHECK UP active 053060861 SNOM ED-CT ELEVATED PSA 04/06/2022 active 607127755 SNOMED -CT MALIGNANT NEOPLASM OF PROSTATE 03/27/2023 active 25671470 SNOMED-CT MALE HOT FLASH (DISORDER) 06/04/2024 active 157150364177370 SNOMED-CT ENCOUNTER FOR SCREENING FOR CARDIOVASCULAR DISORDERS active 659780160 SNOMED-CT INFECTION SCREENING active 639205272 SNOMED-CT SCREENING FOR HEP C active 075890608 SNOMED-CT HISTORY OF ANEMIA active 234475891 SN OMED-CT ENDOCRINE DISORDER active 713740516 S NOMED-CT DYSLIPIDEMIA active 516749338 SNOMED- CT VITAMIN D DEFICIENCY active 44248560 SNOMED-CT HYPERGLYCEMIA active 55353438 SNOMED -CT NEUROPATHY active 101209177 SNOMED-CT PRE-EXISTING CONDITION IMPROVED 09/24/2024 active 627471320 SNOMED-CT ACUTE SINUSITIS 01/30/2020 resolved 23299365 SNO MED-CT ACUTE BRONCHITIS 01/30/2020 resolved 37784461 SN OMED-CT URI 01/30/2020 resolved 44640067 SNOMED-CT Allergies and Adverse Reactions Allergy Substance Reaction Severity Start Date Concern Status Co de Code System No Known Drug Allergies Mild Active 151809563 SNOMED-CT Plan of Treatment Colonoscopy 05/05/2021 Pre [...] Sys tem Raised prostate specific antigen 11/13/2022 23144905 5 SNOMED-CT Personal Care Team Section Performer Name Performer Role Active Date Inactive Da te
--- OUTSIDE RECORDS SUMMARY | 2024-11-03 09:17 | XMS_ITS ---
Author Organization Unknown Address [address] [place] [phone] Phone Care Team Providers Care Theater Projectionist Name Role Phone ARPITA Sloan MD Attending [...] CVX Results VENIPUNCTURE - Collect Date/ Time: 03/29/2022 09:55 [facility] ID: [id number] [address] [place], [place], [phone] LOINC: Test Value Unit Reference Range Code Code System Flag Test name: VENIPUNCTURE ORDERING PROVIDER: ARPITA TEST(S) ORDERED: CMP LIPD PSA CBC HAS ABN BEEN SIGNED NO DATE DRAWN: 03-29-22 TIME DRAWN: 945 DRAWN BY: MLS DRAW SITE: Antecubital,Left PATIENT REACTION: None Social History Type Status Start Date End Date Code Code Syst em Smoking History Never smoker (Never Smoked) 938610090 SNOMED CT Smoking History Unknown if ever smoked [address] Sex Male Medications Medication Start Date End Date Route Frequency Dose Code Code System Medication Instructions Home Meds Aspirin 81MG Oral Tablet, Chewable 10/23/2014 06/04/2024 By mouth Daily 1 TABLET 467526 RxNorm 1 TABLET By mouth Daily OTC Orgovyx 120 MG Oral Tablet 06/04/2024 Unknown By Mouth Daily 1 TABLET 9356070 RxNorm 1 TABLET By Mouth Daily Xtandi 80 MG Oral Tablet 06/04/2024 Unknown By Mouth Daily 2 TABLET 7256742 RxNorm 2 TABLET By Mouth Daily At bedtime Black Cohosh 540 MG Oral Capsule 06/04/2024 Unknown By Mouth Daily 1 CAPSULE RxNorm 1 CAPSULE By Mouth Daily Drisdol 90183DC Oral Capsule, Liquid Filled 06/18/2024 Unknown By Mouth Once a week 1 CAPSULE 5400495 RxNorm 1 CAPSULE By Mouth Once a week For 12 weeksThree weeks after your last dose please repeat vitamin-D level lab Gabapentin 300 MG Oral Tablet, Extended Release, 24 HR 06/22/2024 06/25/2024 By Mouth Every 12 hours 1 TABLET 5350534 RxNorm 1 TABLET By Mouth Every 12 hours Gabapentin 300MG Oral Capsule 06/25/2024 Unknown By Mouth Every 12 hours 1 CAPSULE 679963 RxNorm 1 CAPSULE By Mouth Every 12 hours Assessment You had the following problems:HYPERTENSIONPLAQUE PSORIASISHEALTH CHECK UPELEVATED PSAMALIGNANT NEOPLASM OF PROSTATEMALE HOT FLASH (DISORDER)ENCOUNTER FOR SCREENING FOR CARDIOVASCULAR DISORDERSINFECTION SCREENINGSCREENING FOR HEP CHISTORY OF ANEMIAENDOCRINE DISORDERDYSLIPIDEMIAVITAMIN D DEFICIENCYHYPERGLYCEMIANEUROPATHYPRE-EXISTING CONDITION IMPROVED Diagnosis: HEALTH CHECK UP / Z0000 Hospital Discharge Instructions Should you have any questions prior to discharge, please contact a member of your healthcare team. If you have left the hospital and have any questions, please contact your primary care physician. Reason For Referral No Data Found Problems Problem Start Date Resolved Date Status Code Code System HYPERTENSION active 15202709 SNOMED- CT PLAQUE PSORIASIS active 550445090 SNO MED-CT HEALTH CHECK UP active 561095328 SNOM ED-CT ELEVATED PSA 04/06/2022 active 905783185 SNOMED -CT MALIGNANT NEOPLASM OF PROSTATE 03/27/2023 active 27329219 SNOMED-CT MALE HOT FLASH (DISORDER) 06/04/2024 active 819937537352720 SNOMED-CT ENCOUNTER FOR SCREENING FOR CARDIOVASCULAR DISORDERS active 324743970 SNOMED-CT INFECTION SCREENING active 473586869 SNOMED-CT SCREENING FOR HEP C active 958847306 SNOMED-CT HISTORY OF ANEMIA active 304031334 SN OMED-CT ENDOCRINE DISORDER active 083753127 S NOMED-CT DYSLIPIDEMIA active 990025988 SNOMED- CT VITAMIN D DEFICIENCY active 61212941 SNOMED-CT HYPERGLYCEMIA active 23601961 SNOMED -CT NEUROPATHY active 952226354 SNOMED-CT PRE-EXISTING CONDITION IMPROVED 09/24/2024 active 039295444 SNOMED-CT ACUTE SINUSITIS 01/30/2020 resolved 73096599 SNO MED-CT ACUTE BRONCHITIS 01/30/2020 resolved 03280085 SN OMED-CT URI 01/30/2020 resolved 48865792 SNOMED-CT Allergies and Adverse Reactions Allergy Substance Reaction Severity Start Date Concern Status Co de Code System No Known Drug Allergies Mild Active 745961287 SNOMED-CT Plan of Treatment Colonoscopy 05/05/2021 Pre [...] Order Date Futu re Order Loinc: PSA DIAGNOSTIC 09/29/2022 LOINC: 74817-3 Encounters Encounter Diagnosis Start Date Code Code Sys tem Adult health examination 03/29/2022 320418367 SNO MED-CT Personal Care Team Section Performer Name Performer Role Active Date Inactive Da te
--- OUTSIDE RECORDS SUMMARY | 2024-11-03 09:17 | XMS_ITS ---
Author Organization Unknown Address [address] [place] [phone] Phone Care Team Providers Care Superintendent Quarry Name Role Phone ARPITA Sloan MD Attending [...] CVX Results VENIPUNCTURE - Collect Date/ Time: 06/06/2023 10:10 [facility] ID: [id number] [address] [place], [place], [id number] LOINC: Test Value Unit Reference Range Code Code System Flag Test name: VENIPUNCTURE ORDERING PROVIDER: FELIPE TOWNSEND MD TEST(S) ORDERED: PSA DIAG HAS ABN BEEN SIGNED NO DATE DRAWN: 06-06-23 TIME DRAWN: 1010 DRAWN BY: MLS DRAW SITE: Antecubital,Right PATIENT REACTION: None Social History Type Status Start Date End Date Code Code Syst em Smoking History Never smoker (Never Smoked) 159432166 SNOMED CT Smoking History Unknown if ever smoked [address] Sex Male Medications Medication Start Date End Date Route Frequency Dose Code Code System Medication Instructions Home Meds Aspirin 81MG Oral Tablet, Chewable 10/23/2014 06/04/2024 By mouth Daily 1 TABLET 294304 RxNorm 1 TABLET By mouth Daily OTC Orgovyx 120 MG Oral Tablet 06/04/2024 Unknown By Mouth Daily 1 TABLET 4039913 RxNorm 1 TABLET By Mouth Daily Xtandi 80 MG Oral Tablet 06/04/2024 Unknown By Mouth Daily 2 TABLET 8339419 RxNorm 2 TABLET By Mouth Daily At bedtime Black Cohosh 540 MG Oral Capsule 06/04/2024 Unknown By Mouth Daily 1 CAPSULE RxNorm 1 CAPSULE By Mouth Daily Drisdol 42903DB Oral Capsule, Liquid Filled 06/18/2024 Unknown By Mouth Once a week 1 CAPSULE 2812580 RxNorm 1 CAPSULE By Mouth Once a week For 12 weeksThree weeks after your last dose please repeat vitamin-D level lab Gabapentin 300 MG Oral Tablet, Extended Release, 24 HR 06/22/2024 06/25/2024 By Mouth Every 12 hours 1 TABLET [id number] RxNorm 1 TABLET By Mouth Every 12 hours Gabapentin 300MG Oral Capsule 06/25/2024 Unknown By Mouth Every 12 hours 1 CAPSULE 042350 RxNorm 1 CAPSULE By Mouth Every 12 hours Assessment You had the following problems:HYPERTENSIONPLAQUE PSORIASISHEALTH CHECK UPELEVATED PSAMALIGNANT NEOPLASM OF PROSTATEMALE HOT FLASH (DISORDER)ENCOUNTER FOR SCREENING FOR CARDIOVASCULAR DISORDERSINFECTION SCREENINGSCREENING FOR HEP CHISTORY OF ANEMIAENDOCRINE DISORDERDYSLIPIDEMIAVITAMIN D DEFICIENCYHYPERGLYCEMIANEUROPATHYPRE-EXISTING CONDITION IMPROVED Diagnosis: C61 / PROSTATE CANCER Hospital Discharge Instructions Should you have any questions prior to discharge, please contact a member of your healthcare team. If you have left the hospital and have any questions, please contact your primary care physician. Reason For Referral No Data Found Problems Problem Start Date Resolved Date Status Code Code System HYPERTENSION active 51259156 SNOMED- CT PLAQUE PSORIASIS active 626747905 SNO MED-CT HEALTH CHECK UP active 383947784 SNOM ED-CT ELEVATED PSA 04/06/2022 active 452004761 SNOMED -CT MALIGNANT NEOPLASM OF PROSTATE 03/27/2023 active 40924874 SNOMED-CT MALE HOT FLASH (DISORDER) 06/04/2024 active 793496592269307 SNOMED-CT ENCOUNTER FOR SCREENING FOR CARDIOVASCULAR DISORDERS active 597395467 SNOMED-CT INFECTION SCREENING active 498640318 SNOMED-CT SCREENING FOR HEP C active 776072846 SNOMED-CT HISTORY OF ANEMIA active 457447342 SN OMED-CT ENDOCRINE DISORDER active 708085418 S NOMED-CT DYSLIPIDEMIA active 115199270 SNOMED- CT VITAMIN D DEFICIENCY active 21637432 SNOMED-CT HYPERGLYCEMIA active 55545263 SNOMED -CT NEUROPATHY active 598689522 SNOMED-CT PRE-EXISTING CONDITION IMPROVED 09/24/2024 active 029588705 SNOMED-CT ACUTE SINUSITIS 01/30/2020 resolved 15142698 SNO MED-CT ACUTE BRONCHITIS 01/30/2020 resolved 05322161 SN OMED-CT URI 01/30/2020 resolved 04520327 SNOMED-CT Allergies and Adverse Reactions Allergy Substance Reaction Severity Start Date Concern Status Co de Code System No Known Drug Allergies Mild Active 700836533 SNOMED-CT Plan of Treatment Colonoscopy 05/05/2021 Pre [...] Primary malignant neoplasm of prostate 06/06/2023 93 373897 SNOMED-CT Personal Care Team Section Performer Name Performer Role Active Date Inactive Tate lockhart
--- OUTSIDE RECORDS SUMMARY | 2024-11-03 09:17 | XMS_ITS ---
Author Organization Unknown Address [address], [place] [phone] Phone Care Team Providers Care Facility Maintenance Technician Name Role Phone PRINCESS RUEDA Attending Unavailable Stephanie Squires Primary Unavailable Social History Type Status Start Date End Date Code Code Syst em Smoking History Never smoker (Never Smoked) 573105659 SNOMED CT Smoking History Unknown if ever smoked [address] Sex Male Medications Medication Start Date End Date Route Frequency Dose Code Code System Medication Instructions Home Meds Aspirin 81MG Oral Tablet, Chewable 10/23/2014 06/04/2024 By mouth Daily 1 TABLET 903676 RxNorm 1 TABLET By mouth Daily OTC [...] 06/04/2024 Unknown By Mouth Daily 1 TABLET 4942819 RxNorm 1 TABLET By Mouth Daily Xtandi 80 MG Oral Tablet 06/04/2024 Unknown By Mouth Daily 2 TABLET 9241804 RxNorm 2 TABLET By Mouth Daily At bedtime Black Cohosh 540 MG Oral Capsule 06/04/2024 Unknown By Mouth Daily 1 CAPSULE RxNorm 1 CAPSULE By Mouth Daily Drisdol 73334TP Oral Capsule, Liquid Filled 06/18/2024 Unknown By Mouth Once a week 1 CAPSULE 2030846 RxNorm 1 CAPSULE By Mouth Once a week For 12 weeksThree weeks after your last dose please repeat vitamin-D level lab Gabapentin 300 MG Oral Tablet, Extended Release, 24 HR 06/22/2024 06/25/2024 By Mouth Every 12 hours 1 TABLET 8168032 RxNorm 1 TABLET By Mouth Every 12 hours Gabapentin 300MG Oral Capsule 06/25/2024 Unknown By Mouth Every 12 hours 1 CAPSULE 989347 RxNorm 1 CAPSULE By Mouth Every 12 hours Assessment You had the following problems:HYPERTENSIONPLAQUE PSORIASISHEALTH CHECK UPELEVATED PSAMALIGNANT NEOPLASM OF PROSTATEMALE HOT FLASH (DISORDER)ENCOUNTER FOR SCREENING FOR CARDIOVASCULAR DISORDERSINFECTION SCREENINGSCREENING FOR HEP CHISTORY OF ANEMIAENDOCRINE DISORDERDYSLIPIDEMIAVITAMIN D DEFICIENCYHYPERGLYCEMIANEUROPATHYPRE-EXISTING CONDITION IMPROVED Assessment: Positive Cologuard Plan: Colonoscopy [employer] SCALE: Refer to Anesthesia Record. PLAN FOR SEDATION/ANALGESIA: Anesthesia assist. Consent: Discussed the risks, benefits and alternatives to the procedure and sedation or analgesia with the patient and have documented the patient's understanding of these on the appropriate consent form. Hospital Discharge Instructions Should you have any questions prior to discharge, please contact a member of your healthcare team. If you have left the hospital and have any questions, please contact your primary care physician. Reason For Referral No Data Found Procedures Procedure Name Date Status Code Code Syste m Inspection of Lower Intestin al Tract, Via Natural or Artificial Opening Endoscopic 05/12/2021 completed [id number] DIAGNOSTIC COLONOSCOPY 05/12/2021 completed 39145 CP T Problems Problem Start Date Resolved Date Status Code Code System HYPERTENSION active 70029893 SNOMED- CT PLAQUE PSORIASIS active 914096540 SNO MED-CT HEALTH CHECK UP active 690928561 SNOM ED-CT ELEVATED PSA 04/06/2022 active 613067933 SNOMED -CT MALIGNANT NEOPLASM OF PROSTATE 03/27/2023 active 12085789 SNOMED-CT MALE HOT FLASH (DISORDER) 06/04/2024 active 904415506147713 SNOMED-CT ENCOUNTER FOR SCREENING FOR CARDIOVASCULAR DISORDERS active 044254170 SNOMED-CT INFECTION SCREENING active 482003850 SNOMED-CT SCREENING FOR HEP C active 812131935 SNOMED-CT HISTORY OF ANEMIA active 379715220 SN OMED-CT ENDOCRINE DISORDER active 796167766 S NOMED-CT DYSLIPIDEMIA active 380009021 SNOMED- CT VITAMIN D DEFICIENCY active 05959967 SNOMED-CT HYPERGLYCEMIA active 62456477 SNOMED -CT NEUROPATHY active 210833701 SNOMED-CT PRE-EXISTING CONDITION IMPROVED 09/24/2024 active 852522658 SNOMED-CT ACUTE SINUSITIS 01/30/2020 resolved 53683603 SNO MED-CT ACUTE BRONCHITIS 01/30/2020 resolved 12338906 SN OMED-CT URI 01/30/2020 resolved 16959215 SNOMED-CT Allergies and Adverse Reactions Allergy Substance Reaction Severity Start Date Concern Status Co de Code System No Known Drug Allergies Mild Active 912565086 SNOMED-CT Plan of Treatment Colonoscopy 05/05/2021 Pre [...] Diagnosis Start Date Code Code Sys tem Other fecal abnormalities 05/12/2021 SN OMED-CT Personal Care Team Section Performer Name Performer Role Active Date Inactive Da te History and Physical Notes Procedures Notes
--- OUTSIDE RECORDS SUMMARY | 2024-11-03 09:17 | XMS_ITS | Clinical Summary ---
Author Organization [facility] Address [facility] [place] [address] Care Team Providers Care Web Press Operator Apprentice Name Role Phone Brittany Barros MD Unavailable Social History Tobacco Use Types Packs/Day Years Used Date Smoking Tobacco: Never Assessed Sex and Gender Information Value Date Recorded Sex Assigned at Not on file Legal Sex Male 9:27 AM CDT Gender Identity Not on file Sexual Orientation Not on file Plan of Treatment Health Maintenance Due Date Last Done Comments Colorectal Cancer Screening Colonoscopy (10 Years) 1955 Hepatitis C 1972 DTaP, Tdap and Td Vaccines ( 1 - Tdap) 1973 Zoster Vaccines (1 of 2) 2004 Pneumococcal Vaccine: 65+ Ye ars (1 of 1 - PCV) 2019 COVID-19 Vaccine ( - 2023-2 5 season) 2024 RSV Immunization or 60+ Years (1 - 1-dose 75+ series) 2029 Meningococcal B Vaccine Aged Out No l onger eligible based on patient's age to complete this topic Meningococcal Vaccine Aged Out No beverly kaitlin eligible based on patient's age to complete this topic RSV Immunizations Under 20 Months Aged Out No longer eligible based on patient's age to complete this topic Insurance [facility] Care Teams Web Press Operator Apprentice Relationship Specialty Start Date End Date Brittany Barros MD [address] [place] [address] [facility] 03/23/23
--- OUTSIDE RECORDS SUMMARY | 2024-11-03 09:17 | XMS_ITS ---
Author Organization Unknown Address [address] [place] [phone] Phone Care Team Providers Care Assembly Mechanic Name Role Phone BINDU ABDISSA Attending Unavailable Immunization Immunization Date Status Additional [...] CVX Results VENIPUNCTURE - Collect Date/ Time: 09/24/2024 08:13 [facility] ID: [id number] [address] [place], [place], [id number] LOINC: Test Value Unit Reference Range Code Code System Flag Test name: VENIPUNCTURE ORDERING PROVIDER: Bindu TEST(S) ORDERED: Vitamin D HAS ABN BEEN SIGNED NO DATE DRAWN: 09/24/2024 TIME DRAWN: 08:13 DRAWN BY: TANG barcenas DRAW SITE: Antecubital,Right PATIENT REACTION: None Social History Type Status Start Date End Date Code Code Syst em Smoking History Never smoker (Never Smoked) 377033568 SNOMED CT Smoking History Unknown if ever smoked [address] Sex Male Medications Medication Start Date End Date Route Frequency Dose Code Code System Medication Instructions Home Meds Orgovyx 120 MG Oral Tablet 06/04/2024 Unknown By Mouth Daily 1 TABLET 4622823 RxNorm 1 TABLET By Mouth Daily Xtandi 80 MG Oral Tablet 06/04/2024 Unknown By Mouth Daily 2 TABLET 0286704 RxNorm 2 TABLE T By Mouth Daily At bedtime Black Gabino 540 MG Oral Capsule 06/04/2024 Unknown By Mouth Daily 1 CAPSULE RxNorm 1 CAPSULE By Mouth Daily Drisdol 88205SO Oral Capsule, Liquid Filled 06/18/2024 Unknown By Mouth Once a week 1 CAPSULE 9037624 RxNorm 1 CAPSULE By Mouth Once a week For 12 weeksThree weeks after your last dose please repeat vitamin-D level lab Gabapentin 300MG Oral Capsule 06/25/2024 Unknown By Mouth Every 12 hours 1 CAPSULE 378555 RxNorm 1 CAPSULE By Mouth Every 12 hours Assessment You had the following problems:HYPERTENSIONPLAQUE PSORIASISHEALTH CHECK UPELEVATED PSAMALIGNANT NEOPLASM OF PROSTATEMALE HOT FLASH (DISORDER)ENCOUNTER FOR SCREENING FOR CARDIOVASCULAR DISORDERSINFECTION SCREENINGSCREENING FOR HEP CHISTORY OF ANEMIAENDOCRINE DISORDERDYSLIPIDEMIAVITAMIN D DEFICIENCYHYPERGLYCEMIANEUROPATHYPRE-EXISTING CONDITION IMPROVED Diagnosis: Vitamin D deficiency (E559) Hospital Discharge Instructions Should you have any questions prior to discharge, please contact a member of your healthcare team. If you have left the hospital and have any questions, please contact your primary care physician. Reason For Referral No Data Found Problems Problem Start Date Resolved Date Status Code Code System HYPERTENSION active 80286139 SNOMED- CT PLAQUE PSORIASIS active 056573615 SNO MED-CT HEALTH CHECK UP active 845767281 SNOM ED-CT ELEVATED PSA 04/06/2022 active 537911540 SNOMED -CT MALIGNANT NEOPLASM OF PROSTATE 03/27/2023 active 84958110 SNOMED-CT MALE HOT FLASH (DISORDER) 06/04/2024 active 340877032362601 SNOMED-CT ENCOUNTER FOR SCREENING FOR CARDIOVASCULAR DISORDERS active 970041106 SNOMED-CT INFECTION SCREENING active 603824970 SNOMED-CT SCREENING FOR HEP C active 571216726 SNOMED-CT HISTORY OF ANEMIA active 686246189 SN OMED-CT ENDOCRINE DISORDER active 551710203 S NOMED-CT DYSLIPIDEMIA active 718931344 SNOMED- CT VITAMIN D DEFICIENCY active 83958510 SNOMED-CT HYPERGLYCEMIA active 01292138 SNOMED -CT NEUROPATHY active 534177003 SNOMED-CT PRE-EXISTING CONDITION IMPROVED 09/24/2024 active 262764415 SNOMED-CT ACUTE SINUSITIS 01/30/2020 resolved 23864829 SNO MED-CT ACUTE BRONCHITIS 01/30/2020 resolved 45454238 SN OMED-CT URI 01/30/2020 resolved 18264716 SNOMED-CT Allergies and Adverse Reactions Allergy Substance Reaction Severity Start Date Concern Status Co de Code System No Known Drug Allergies Mild Active 337664670 SNOMED-CT Plan of Treatment Colonoscopy 05/05/2021 Pre [...] Code Sys tem Vitamin D deficiency 09/24/2024 36597099 SNOMED- CT Personal Care Team Section Performer Name Performer Role Active Date Inactive Da te
--- OUTSIDE RECORDS SUMMARY | 2024-11-03 09:17 | XMS_ITS ---
Author Organization Unknown Address [address] [place] [phone] Phone Care Team Providers Care Demand Planner Name Role Phone ARPITA Sloan MD Attending [...] em Smoking History Never smoker (Never Smoked) 612766097 SNOMED CT Smoking History Unknown if ever smoked [address] Sex Male Medications Medication Start Date End Date Route Frequency Dose Code Code System Medication Instructions Home Meds Aspirin 81MG Oral Tablet, Chewable 10/23/2014 06/04/2024 By mouth Daily 1 TABLET 294641 RxNorm 1 TABLET By mouth Daily OTC Orgovyx 120 MG Oral Tablet 06/04/2024 Unknown By Mouth Daily 1 TABLET 0688856 RxNorm 1 TABLET By Mouth Daily Xtandi 80 MG Oral Tablet 06/04/2024 Unknown By Mouth Daily 2 TABLET 7472042 RxNorm 2 TABLET By Mouth Daily At bedtime Black Cohosh 540 MG Oral Capsule 06/04/2024 Unknown By Mouth Daily 1 CAPSULE RxNorm 1 CAPSULE By Mouth Daily Drisdol 40487LI Oral Capsule, Liquid Filled 06/18/2024 Unknown By Mouth Once a week 1 CAPSULE 5780641 RxNorm 1 CAPSULE By Mouth Once a week For 12 weeksThree weeks after your last dose please repeat vitamin-D level lab Gabapentin 300 MG Oral Tablet, Extended Release, 24 HR 06/22/2024 06/25/2024 By Mouth Every 12 hours 1 TABLET 7076460 RxNorm 1 TABLET By Mouth Every 12 hours Gabapentin 300MG Oral Capsule 06/25/2024 Unknown By Mouth Every 12 hours 1 CAPSULE 511258 RxNorm 1 CAPSULE By Mouth Every 12 [...] Date Status Code Code System HYPERTENSION active 97857742 SNOMED- CT PLAQUE PSORIASIS active 872493779 SNO MED-CT HEALTH CHECK UP active 101448261 SNOM ED-CT ELEVATED PSA 04/06/2022 active 040292119 SNOMED -CT MALIGNANT NEOPLASM OF PROSTATE 03/27/2023 active 08043304 SNOMED-CT MALE HOT FLASH (DISORDER) 06/04/2024 active 962140048475457 SNOMED-CT ENCOUNTER FOR SCREENING FOR CARDIOVASCULAR DISORDERS active 466641970 SNOMED-CT INFECTION SCREENING active 174869762 SNOMED-CT SCREENING FOR HEP C active 094166693 SNOMED-CT HISTORY OF ANEMIA active 343149518 SN OMED-CT ENDOCRINE DISORDER active 798169761 S NOMED-CT DYSLIPIDEMIA active 253896298 SNOMED- CT VITAMIN D DEFICIENCY active 73067547 SNOMED-CT HYPERGLYCEMIA active 42021338 SNOMED -CT NEUROPATHY active 044802638 SNOMED-CT PRE-EXISTING CONDITION IMPROVED 09/24/2024 active 658709253 SNOMED-CT ACUTE SINUSITIS 01/30/2020 resolved 12603838 SNO MED-CT ACUTE BRONCHITIS 01/30/2020 resolved 97184300 SN OMED-CT URI 01/30/2020 resolved 19873172 SNOMED-CT Allergies and Adverse Reactions Allergy Substance Reaction Severity Start Date Concern Status Co de Code System No Known Drug Allergies Mild Active 270125080 SNOMED-CT Plan of Treatment Colonoscopy 05/05/2021 Pre OP Phone 05/05/2021 Covid Vaccine 1st Dose Moderna 10/15/19 21 Covid Vaccine 2nd Dose Moderna 10/15/19 21 Covid Vaccine 1st Dose Moderna 11/12/19 21 Covid Vaccine 2nd Dose Moderna 11/12/19 21 Physical Wellness 30 06/11/2025 Description Due Date Details Instructions Vitamin D 09/17/2024 Due for recheck Screening Colonoscopy 05/12/2026 last one 1 @ [facility] abhijeet/ Otoniel, repeat 5 years. Personal Care Team Section Performer Name Performer Role Active Date Inactive Da chantelle
== END 2024-11-03 08:44 | disposition home or self-care (01) ==
PROVIDERS: PCP Urology; Visit Provider Urology
DX: C61 Malignant neoplasm of prostate (principal); M85.88 Other specified disorders of bone density and structure, other site; M85.851 Other specified disorders of bone density and structure, right thigh
CPT/HCPCS: 77080